=== PATIENT | male | born 1990 | race Caucasian/White ===

== ENCOUNTER 2022-09-02 11:16 | Emergency (ER) | payer MEDICAID, SELFPAY ==
[2022-09-02 11:18] VITALS: BP 134/93; PULSE 91; RESP 16; TEMP 36.3; O2SAT 100; BMI 32.6
--- NOTE | 2022-09-02 11:21 | ED.RN ---
PER PT OKAY TO GIVE INFORMATION TO MOTHER SAROJ BORRERO [phone]
--- NOTE | 2022-09-02 11:27 | EKG12_ITS ---
Test Reason : Blood Pressure : / mmHG Vent. Rate : 090 BPM Atrial Rate : 090 BPM P-R Int : 140 ms QRS Dur : 096 ms QT Int : 344 ms P-R-T Axes : 021 006 046 degrees QTc Int : 420 ms Normal sinus rhythm with sinus arrhythmia Normal ECG Confirmed by FRIDA CAT, BRITTNEY ([id number]), supervising film or videotape editor JUN SINGLETARY ([id number]) on 09/06/2022 10:12:30 AM Referred By: Confirmed By:BRITTNEY GALICIA MD
--- NOTE | 2022-09-02 11:32 | EDS_ITS ---
HPI HPI - Psych History of Present Illness Chief Complaint: Suicidal Narrative Narrative: 32-year-old male presents with lifelong depression. He states that its been getting worse over the last week. He does not currently take medication for it except for uaro-dxi-ensckso antihistamines, and is not currently being seen by psychiatry. He states that yesterday he asked his mother for help, and they brought him to the emergency department today for psychiatric evaluation. While he denies suicidal ideation today, he states last week he reportedly tried to asphyxiate himself. It is not over anything in particular, no recent trigger. He denies homicidal ideation or hallucinations. He does not recall being admitted for psychiatric reasons, but states that he was treated with counseling when he was younger, then into his 20s. He endorses mild insomnia and mildly decreased appetite. [facility] Medical History (Updated 09/02/22 @ 17:19 by Kristopher Jcakson MD) Depression Allergy/AdvReac Type Severity Reaction Status Date / Time cefaclor [From Ceclor] Allergy Hives Verified 09/02/22 11:21 strawberry [strawberries] Allergy Hives Verified 09/02/22 11:21 Social History Smoking Status: Current every day smoker tobacco type: cigarettes ROS ROS ED ROS Narrative Constitutional: No fever, no chills. HEENT: No sore throat. No neck pain. No loss of vision. No rhinorrhea. Cardiovascular: No chest pain. No palpitations. No pedal edema. Respiratory: No cough, no shortness of breath. Abdominal: No abdominal pain. No nausea. No vomiting. Genitourinary: No dysuria. No hematuria. Musculoskeletal: No myalgias. No arthralgias. Neurologic: No headaches. No dizziness. No lightheadedness. Skin: No rash. No change in color. Psychiatric: Positive depression. No anxiety. Suicidal thoughts in the past, reportedly tried to asphyxiate self last week. EXAM Physical Exam Narrative Exam Narrative: Afebrile. Vital signs noted. HEENT: Normocephalic. Atraumatic. PERRL, EOMI. Neck soft and supple. No point tenderness or step off. Cardiovascular: Regular rate and rhythm. No murmurs, rubs, or gallops appreciated. Respiratory: No tachypnea. Lungs clear to auscultation bilaterally. Gastrointestinal: Abdomen soft, nontender, with normoactive bowel sounds. No rebound or guarding. Neurological: Awake. Alert. Nonfocal, nonlateralizing. Skin: No rash. Normal color. No pallor. Musculoskeletal: No pedal edema. Full range of motion extremities. Psychiatric: Cooperative. Mildly flat affect. Positive depression. Currently denies suicidal ideation or plan. Const Vital Signs: 09/02/22 11:18 09/02/22 15:57 Temperature 97.4 F L Temperature Source Temporal Pulse Rate 91 Respiratory Rate 16 16 Blood Pressure 134/93 H Blood Pressure Mean 106 Pulse Ox 100 Oxygen Delivery Method Room Air MDM MDM MDM Narrative Medical decision making narrative: As the patient has not had any recent counseling and is not on medication, I do feel medical screening labs need to be obtained. Additionally, he will have evaluation by case aide. Reviewed his laboratory work. EKG was obtained, and interpreted by myself, which demonstrates normal sinus rhythm with sinus arrhythmia at 90 bpm without other ectopy or acute ST changes, no STEMI. It was interpreted by myself. I reviewed his laboratory work and he has a normal white count of 7.5, hemoglobin slightly hemoconcentrated at 17.1, normal hematocrit of 49.9, normal platelet count of 426. CMP was reviewed and he has slightly elevated total bilirubin of 2.2 which I think is nonspecific, electrolytes are grossly unremarkable with a sodium of 136 and a potassium of 3.5. BUN is normal at 9 with creatinine 0.86. Urine for drugs of abuse is negative. Ethyl alcohol also negative. At this point in time, I feel he is medically cleared for evaluation by case management. In discussion with social insurance specialist/case management, given that the patient is not currently on medications or under the care of a psychiatrist, and he has had other attempts in the last week or strong thoughts of suicide, it was felt that he did require placement in a psychiatric facility. He is currently pending final disposition. He is in stable condition. I discussed the patient with case management and he has been accepted at [facility]. Disposition is transferred in stable condition. History & Record Review Additional record(s) reviewed:: No prior records Lab Data Attestation: I reviewed the patient's lab results. Labs: Laboratory Results - last 24 hr 09/02/22 09/02/2223 12:15 12:15 12:15 WBC 7.5 RBC 6.01 Hgb 17.1 H Hct 49.9 MCV 83.0 MCH 28.5 MCHC 34.3 RDW Std Deviation 36.1 RDW Coeff of Sudheer 11.9 Plt Count 426 MPV 8.7 Immature Gran % (Auto) 0.100 Neut % (Auto) 57.3 Lymph % (Auto) 32.7 [place] % (Auto) 7.1 Eos % (Auto) 2.0 Baso % (Auto) 0.8 Absolute Neuts (auto) 4.3 Absolute Lymphs (auto) 2.45 Nucleated RBC % 0 Sodium 136 Potassium 3.5 Chloride 102 Carbon Dioxide 24.0 Anion Gap 10 BUN 9 Creatinine 0.86 Estim Creat Clear Calc 118.20 Est GFR (MDRD) Af Amer 133 Est GFR (MDRD) Non-Af 110 BUN/Creatinine Ratio 10.5 Glucose 100 Calcium 9.8 Total Bilirubin 2.20 H AST 27 ALT 41 Alkaline Phosphatase 76 Total Protein 8.7 H Albumin 4.5 Globulin 4.2 Albumin/Globulin Ratio 1.1 Urine Opiates Screen Urine Methadone Screen Ur Barbiturates Screen Ur Phencyclidine Scrn Ur Amphetamines Screen MDMA (Ecstasy) Screen U Benzodiazepines Scrn Urine Cocaine Screen U Cannabinoids Screen Ur Drug Screen Comment Ethyl Alcohol 7.0 09/02/22 13:30 WBC RBC Hgb Hct MCV MCH MCHC RDW Std Deviation RDW Coeff of Sudheer Plt Count MPV Immature Gran % (Auto) Neut % (Auto) Lymph % (Auto) [place] % (Auto) Eos % (Auto) Baso % (Auto) Absolute Neuts (auto) Absolute Lymphs (auto) Nucleated RBC % Sodium Potassium Chloride Carbon Dioxide Anion Gap BUN Creatinine Estim Creat Clear Calc Est GFR (MDRD) Af Amer Est GFR (MDRD) Non-Af BUN/Creatinine Ratio Glucose Calcium Total Bilirubin AST ALT Alkaline Phosphatase Total Protein Albumin Globulin Albumin/Globulin Ratio Urine Opiates Screen NEGATIVE Urine Methadone Screen NEGATIVE Ur Barbiturates Screen NEGATIVE Ur Phencyclidine Scrn NEGATIVE Ur Amphetamines Screen NEGATIVE MDMA (Ecstasy) Screen NEGATIVE U Benzodiazepines Scrn NEGATIVE Urine Cocaine Screen NEGATIVE U Cannabinoids Screen NEGATIVE Ur Drug Screen Comment Ethyl Alcohol Management Discussion w/another healthcare provider: meat counter worker/Case management Discharge Plan Triage Chief Complaint: Suicidal ED Provider: Kristopher Jackson Dx/Rx/DC Orders Clinical Impression: Depression, Suicidal ideations, Suicide gesture Primary Care Provider: Care Physician,No Primary Referrals: Care Physician,No Primary [Primary Care Provider] - Disposition Disposition: Psychiatric Hospital or Unit Discharge Location: [facility]
[2022-09-02 12:32] LABS: Absolute Lymphocyte Count 2.45 X10^3/uL (0.83-4.51); Absolute Neutrophil Count 4.3 X10^3/uL (2.0-7.7); Basophil# 0.06 X10^3/uL; Basophil% 0.8 % (0-1); Eosinophil# 0.15 X10^3/uL; Hematocrit 49.9 % (40-54); Hemoglobin 17.1 g/dL (13.0-16.5); Lymphocyte # 2.45 X10^3/ul (0.83-4.51); Lymphocyte % 32.7 % (19-41); Mean Corp Hgb Conc 34.3 g/dL (32-36); Mean Corpuscular Hgb 28.5 pg (27.0-32.0); Mean Platelet Vol. 8.7 fl (6.2-12.0); Monocyte# 0.53 X10^3/uL; Monocyte% 7.1 % (0-10); NRBC Flagged by Analyzer 0 % (0-5); Neutrophil % 57.3 % (47-70); Platelet Count 426 K/mm3 (150-450); RBC Distribution Width CV 11.9 % (11.6-14.6); RBC Distribution Width SD 36.1 fl (35.1-43.9); Red Blood Count 6.01 M/mm3 (4.6-6.2); White Blood Count 7.5 K/mm3 (4.4-11.0)
[2022-09-02 12:45] LABS: ALB/GLOB Ratio 1.1 RATIO (0.9-2.4); AST(SGOT) 27 U/L (15-37); Alanine Aminotransfer ALT/SGPT 41 U/L (16-61); Albumin, Serum 4.5 g/dL (3.2-5.0); Alkaline Phosphatase 76 U/L (45-117); Anion Gap 10 (5-15); BUN 9 mg/dL (7-18); BUN/Creat Ratio 10.5 RATIO (10-20); Calcium,Total 9.8 mg/dL (8.5-10.1); Chloride 102 mmol/L (98-107); Creatinine, Serum 0.86 mg/dL (0.70-1.30); EST Glomerular Filtration Rate 110 mL/min (>60); Est Glom Filt Rate - Afr Amer 133 mL/min (>60); Globulin 4.2 g/dL (2.2-4.2); Glucose 100 mg/dL (74-106); Potassium 3.5 mmol/L (3.5-5.1); Protein, Total 8.7 g/dL (6.4-8.2); Sodium Level 136 mmol/L (136-145)
[2022-09-02 14:02] LABS: Amphetamine Urine VISTA NEGATIVE (<1000 ng/mL); Barbiturate Urine VISTA NEGATIVE (< 200 ng/mL); Benzodiazepine Urine VISTA NEGATIVE (< 200 ng/mL); Cocaine Urine VISTA NEGATIVE (< 300 ng/mL); Ecstacy Urine VISTA NEGATIVE (< 500 ng/mL); Methadone Urine VISTA NEGATIVE (< 300 ng/mL); PCP Urine VISTA NEGATIVE (< 25 ng/mL); THC Urine VISTA NEGATIVE (< 50 ng/mL); Vista UDS pH Range 5
--- NOTE | 2022-09-02 14:20 | CM.ED ---
Social Work Psychiatric Assessment Reason for Consult: Suicidal Informants: Patient, Bernard ? Patient?s mother secondary to assessment with patient Chief Complaint: Patient reports ?I have been struggling with severe depression so I can?t my Mom for help and she brought me here?. Demographics: Patient is a 32-year-old who identifies as heterosexual male. Patient is single and lives in a home his mother owns. Patient completed first year of college and denies learning disabilities. Patient reports he was last employed in 2020. Mental Health Treatment/ History: Patient reports being engaged in counseling services most of her teen years but stopped in his early 20s. Patient unable to recall agency he worked with but was prescribed Prozac during that time. Patient reports known diagnosis of depression and no previous psychiatric hospitalization. ?? Supports/ Resources: Patient identified his mother as his only support. ? Triggers/ stressors: Patient explained nothing recent besides his stove breaking. Patient reports decrease in appetite and has lost 25 pounds since winter. Patient also reports struggle with sleeping too much or being unable to fall asleep. Legal Issues: None reported Coping Skills: Patient reports he rosio by reading or watching tv, however, patient explained he has been struggling to focus on those tasks when he tries. Abuse History: ? Patient denies experiencing abuse but explained he was a ?bully to other kids?. 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 Patient reports decrease in use over the past year. ?? Risk to Self/Others: ? Suicidal: SW assisted patient in completing the [place] Suicide Screening, patient is high risk for suicide. Patient reports he has gone to bed and wished he wouldn?t wake up, has had thoughts to end his life, has been thinking of plans and reports intent. Patient reports previous attempts dating back to 1995 with an interrupted or aborted attempt to jump off a building. Patient reports struggling with suicidal thoughts all day for the past week and explained he has attempted multiple times over the past week. Patient recalls trying to use a knife but explained he couldn?t break skin, patient also tried to asphyxiate himself with a plastic bag and most recently planned to mix bleach and ammonia and then hang himself. Patient reports he was looking for ammonia when he called his mother for help. ? Homicidal: Patient reports ?not since my teens?. ? Violence: Patient reports poking at his left arm when he is experiencing stress but hasn?t engaged since his early 20s. ?? Mental Status Exam: ? Orientation x4 ? Memory: good ? Appearance:? appropriate ? Mood/ affect: depressed mood, flat affect ? Communication Pattern: Patient responds to questions, frequently stating ?thanks? throughout assessment. ? Thought Process: Patient reports struggling with doubting reality. Patient explained ?I am 80% sure you are here talking to me but 20% of me doubts you are here?. Patient further explained ?If I was going to walk by traffic, I wouldn?t know if there was traffic or if I was imagining cars?. SW inquired if patient has ever attempted suicide by walking into traffic, patient reports ?not that I can recall?. ? General Intellectual Functioning: Patient?s mother reports patient has been told by professionals he is ?neurodivergent? but never diagnosed. Patient?s mother explained he was an honor student until college when patient?s depression ?took over?. Judgement: impaired Insight: impaired? Assessment: JANA met with patient and introduced herself and role as [facility] Devulcanizer Tender. Patient was agreeable to speak to social work. JANA then utilized open and close ended questions to gather information for patient?s assessment. Patient was receptive and cooperative. Patient reports attempting suicide multiple times over the past week including asphyxiation by plastic bag, using a knife and planning to mix bleach and ammonia and then hang himself. SW assisted patient in completing the [place] Suicide Screening, patient is high risk for suicide. Patient reports he has gone to bed and wished he wouldn?t wake up, has had thoughts to end his life, has been thinking of plans and reports intent. Patient reports limited supports and stopped engaging in mental health treatment since his early 20s. Patient provided permission for SW to contact patient?s mother. JANA consulted with MD Jackson and reviewed concerns, SW and MD in agreement for psychiatric hospitalization. JANA contacted patient?s mother and introduced herself and role as [facility] SW. Patient?s mother in agreement to talk with SW and reports being extremely concerned due to chronic untreated depression. Patient?s mother explained the patient stopped engaging in mental health treatment in his early 20s and struggled more with depression during covid pandemic. Patient?s mother reports known diagnosis of depression, sleep apnea, hypotonia and patient has been told he is ?neurodivergent? but not diagnosed. Patient?s mother explained patient was an honor student in High School but struggled with college due to his depression. JANA reviewed recommendation for inpatient psychiatric hospitalization, patient?s mother tearful but reports understanding. SW provided emotional support. ? SW met with patient and reviewed recommendation for inpatient psychiatric hospitalization for crisis stabilization and medication management, patient in agreement. SW updated care team regarding goal for psych placement. Plan: inpatient psychiatric hospitalization [facility] BURCIAGA, MUNIRA
[2022-09-02 15:57] VITALS: RESP 16
--- NOTE | 2022-09-02 17:15 | CM.ED ---
Social Work JANA contacted [facility] to inquire about bed availability, beds available. JANA faxed referral. Patient accepted to [facility] under MD De Dios, unit [address] [id number]. JANA updated care team. escrow secretary to arrange transportation. SW updated patient of acceptance to [facility]. Patient voiced understanding and inquired about clothes. SW explained he will be transported in hospital gown and his belongings with go with him. JANA inquired if patient wants SW to update patient's mother. Patient agreeable but states he will further update once he gets to the facility. SW updated patient's mother of accepting and provided facility contact information. SW informed patient's mother the patient will call her when he is able, patient's mother voiced understanding. Plan: [facility] [place] BURCIAGA, MUNIRA
[2022-09-02 17:26] VITALS: BP 165/100; PULSE 97; RESP 16; O2SAT 96
== END 2022-09-02 17:50 ==
PROVIDERS: Emergency Provider Emergency Medicine; Visit Provider Emergency Medicine
DX: F32.A Depression, unspecified (principal); R45.851 Suicidal ideations; F17.210 Nicotine dependence, cigarettes, uncomplicated
CPT/HCPCS: 80053; 80307; 82077; 85025; 87811; 93005; 99284; J7030; A4216

== ENCOUNTER 2024-11-21 13:10 | Emergency (ER) | payer MEDICAID, SELFPAY ==
[2024-11-21 13:11] VITALS: BP 127/92; PULSE 104; RESP 15; TEMP 35.9; O2SAT 96; BMI 32.6
--- NOTE | 2024-11-21 13:57 | ED.RN ---
PT WAS EVALUATED AT [facility]. THE COUNSELOR THERE SENT THE PT HERE TO BE SEEN.
[2024-11-21 14:03] LABS: Hematocrit 44.7 % (40-54); Hemoglobin 15.3 g/dL (13.0-16.5); Immature Granulocytes Count 0.030 X10^3/uL (0.0-0.0); Mean Corp Hgb Conc 34.2 g/dL (32-36); Mean Corpuscular Volume 84.2 fL (80-94); Mean Platelet Vol. 8.5 fl (6.2-12.0); NRBC Flagged by Analyzer 0 % (0-5); Platelet Count 407 K/mm3 (150-450); RBC Distribution Width CV 12.1 % (11.6-14.6); RBC Distribution Width SD 36.7 fl (35.1-43.9); Red Blood Count 5.31 M/mm3 (4.6-6.2); White Blood Count 9.7 K/mm3 (4.4-11.0)
[2024-11-21 15:01] LABS: Alcohol, Blood (Medical)-Serum < 10.1 mg/dL (<=10.0); Anion Gap 15 (5-15); BUN 8 mg/dL (4-19); BUN/Creat Ratio 10.4 RATIO (10-20); Calcium,Total 10.3 mg/dL (7.6-11.0); Carbon Dioxide 19.0 mmol/L (21.0-32.0); Chloride 103 mmol/L (98-108); Estimated Creatinine Clearance 157.75 ml/min (50-250); Glucose 132 mg/dL (70-99); Potassium 3.8 mmol/L (3.3-5.1)
--- NOTE | 2024-11-21 15:10 | EX.ED.VIS.PS ---
HPI HPI - Psych History of Present Illness Chief Complaint: Suicidal Narrative Narrative: Patient is a 34-year-old male presenting to the emergency department for suicidal ideation. Patient has a past medical history of depression, anxiety, autism spectrum, possible thyroid cancer? being worked up. Patient states that he has been dealing with suicidal ideation for years but it has worsened over the past 3 days. He states that he has a generalized plan if he were to commit suicide by slitting his wrist. States he is attempted this before. He is also attempted overdose with trazodone before. Denies ingestion of anything prior to evaluation here. He was at his therapist visit today and he endorsed these feelings to her and she sent him here for evaluation. Denies HI or plan. Denies hallucinations, paranoia or delusions. [facility] Medical History Depression Home Medications ?Medication ?Instructions ?Recorded ?Last Taken ?Type atorvastatin 20 mg tablet 20 mg PO DAILY 11/21/24 11/20/24 History azelastine 137 mcg (0.1 %) nasal 2 spray intranasal .QD 11/21/24 11/21/24 History spray benztropine 1 mg tablet 1 mg PO DAILY 11/21/24 11/20/24 History famotidine 40 mg tablet 40 mg PO PRN 11/21/24 Unknown History fluticasone propionate 50 2 spray intranasal DAILY 11/21/24 11/21/24 History mcg/actuation nasal spray,suspension ipratropium bromide 42 mcg (0.06 2 spray intranasal DAILY 11/21/24 11/21/24 History %) nasal spray lisinopril 10 mg tablet 10 mg PO DAILY 11/21/24 11/20/24 History loratadine 10 mg tablet 10 mg PO DAILY 11/21/24 11/20/24 History lurasidone 80 mg tablet 80 mg PO QPM 11/21/24 11/20/24 History polyethylene glycol 3350 17 17 PO DAILY 11/21/24 11/21/24 History gram/dose oral powder sertraline 50 mg tablet 50 mg PO DAILY 11/21/24 11/20/24 History Allergy/AdvReac Type Severity Reaction Status Date / Time cefaclor (From [facility]) Allergy Hives Verified 11/21/24 13:14 strawberry (strawberries) Allergy Hives Verified 11/21/24 13:14 Social History Smoking Status: Current every day smoker tobacco type: cigarettes ROS ROS ED ROS Narrative see HPI EXAM Physical Exam Narrative Exam Narrative: Vital signs: Reviewed General: Alert and oriented. No acute distress HEENT: Head is normocephalic and atraumatic, sinuses nontender, pupils equal round and reactive. Nares are patent. Oropharynx and throat exams normal. Neck: Supple without lymphadenopathy nontender Cardiovascular: Regular rate and rhythm, no murmurs. No rubs or gallops. Normal S1 and S2 Respiratory: Clear to auscultation bilaterally. No wheezes, rales, rhonchi Abdominal: Soft and nontender. Normal bowel sounds. No guarding or rebound. Nonsurgical abdomen Extremities: No tenderness. No bruising. Normal range of motion. Normal sensation. Skin: No rash or redness. Neurological: Cranial nerves II through XII are grossly intact. Normal strength and sensation. Normal cerebellar function The rest of the physical exam is unremarkable Const Vital Signs: 11/21/24 13:11 Temperature 96.6 F L Temperature Source Temporal Pulse Rate 104 H Respiratory Rate 15 Blood Pressure 127/92 H Blood Pressure Mean 103 Pulse Ox 96 Oxygen Delivery Method Room Air MDM MDM MDM Narrative Medical decision making narrative: Patient is a 34 old male presenting to the emergency department for suicidal ideation and worsening depression. Patient was seen and examined. Vitals are stable. Patient resting bed comfortably no acute distress. Given the patient's suicidal ideation with past attempts I do have significant concern and would recommend that he be admitted to an inpatient psychiatric facility. Medical clearance labs ordered. Patient evaluated by crisis. They recommended admission as well. Patient was pink slipped. Accepted at [facility] by Dr. Jennings. Will await transport. Clinical impression: Suicidal ideation Depression History & Record Review Discussion w/independent historian: Patient and Family Lab Data Attestation: I reviewed the patient's lab results. Labs: Laboratory Results - last 24 hr 11/21/24 11/21/24 13:45 15:57 WBC 9.7 RBC 5.31 Hgb 15.3 Hct 44.7 MCV 84.2 MCH 28.8 MCHC 34.2 RDW Std Deviation 36.7 RDW Coeff of Sudheer 12.1 Plt Count 407 MPV 8.5 Immature Gran % (Auto) 0.300 Neut % (Auto) 62.9 Lymph % (Auto) 25.3 [place] % (Auto) 7.5 Eos % (Auto) 3.3 Baso % (Auto) 0.7 Absolute Neuts (auto) 6.1 Absolute Lymphs (auto) 2.44 Nucleated RBC % 0 Sodium 138 Potassium 3.8 Chloride 103 Carbon Dioxide 19.0 L Anion Gap 15 BUN 8 Creatinine 0.74 Estim Creat Clear Calc 157.75 Est GFR (MDRD) Non-Af 121 BUN/Creatinine Ratio 10.4 Glucose 132 H Calcium 10.3 Urine Opiates Screen NEGATIVE U Buprenorphine Qual NEGATIVE Ur Oxycodone Screen NEGATIVE Urine Methadone Screen NEGATIVE Urine Fentanyl Screen NEGATIVE Ur Barbiturates Screen NEGATIVE Ur Phencyclidine Scrn NEGATIVE Ur Amphetamines Screen NEGATIVE U Benzodiazepines Scrn NEGATIVE Urine Cocaine Screen NEGATIVE U Cannabinoids Screen NEGATIVE Ethyl Alcohol < 10.1 Discharge Plan Triage Chief Complaint: Suicidal ED Provider: Ramya Maldonado Dx/Rx/DC Orders Prescriptions: No Action atorvastatin 20 mg tablet 20 mg PO DAILY azelastine 137 mcg (0.1 %) spray,non-aerosol 2 spray INTRANASAL .QD famotidine 40 mg tablet 40 mg PO PRN benztropine 1 mg tablet 1 mg PO DAILY fluticasone propionate 50 mcg/actuation spray,suspension 2 spray INTRANASAL DAILY ipratropium bromide 42 mcg (0.06 %) spray,non-aerosol 2 spray INTRANASAL DAILY lisinopril 10 mg tablet 10 mg PO DAILY polyethylene glycol 3350 17 gram/dose powder 17 PO DAILY sertraline 50 mg tablet 50 mg PO DAILY loratadine 10 mg tablet 10 mg PO DAILY lurasidone 80 mg tablet 80 mg PO QPM Primary Care Provider: Care Physician,No Primary Referrals: Care Physician,No Primary [Primary Care Provider] - Print Language: Macanese
[2024-11-21 17:25] LABS: Barbiturate Urine NEGATIVE (< 200 ng/mL); Benzodiazepine Urine NEGATIVE (< 200 ng/mL); PCP Urine NEGATIVE (< 25 ng/mL); THC Urine NEGATIVE (< 50 ng/mL)
--- NOTE | 2024-11-21 17:26 | CM.ED ---
Social Work Psychiatric Assessment Reason for consult: suicidal Informant(s): patient, medical records, patient's mother (Zeynep), patient's stepfather (Dann) Chief Complaint: Patient presented to [facility] ED today after disclosing suicidal thoughts and means to patient's counselor. Patient stated having to move back in with parents as a stressor due to it making patient feel as if patient is a failure. Patient stated feeling isolated and unsupported as stressors, as well as the stress of feeling like a burden to others. Patient endorsed sleeping too much, laying in bed all day, and experiencing an increase in depression. Patient endorses decreasing appetite lately (in a private conversation, patient's mother stated patient has lost 40 pounds over the last 2 months). Patient stated feelings of hopelessness, helplessness, and feeling as if patient is a disappointment to patient's mother. Patient denied family history of suicide, but endorsed family history of depression. Patient denied hallucinations or delusions. Patient reported having a suicide attempt in August 2024 where patient attempted to overdose on Trazodone and slit patient's wrists. Patient stated having a self-interrupted attempt this morning that involved cutting patient's wrists in patient's bedroom. Patient reports an upcoming appointment to discuss a future thyroid surgery for possible thyroid cancer to be a stressor. Of note, patient's last suicide attempt was also due to patient's stress regarding patient's medical concerns. Per separate conversation with patient's mother and stepfather, patient is on the spectrum and has reportedly lost 40 pounds over the last 2 months. Patient's mother stated belief that patient had been doing better overall, though patient's mother did state that patient does nothing during the day. Marital/Social History/Sexual Orientation/Gender Identity: patient is a 34 year old, single male. Living Situation: patient lives with patient's mother and stepfather. Patient moved back in with parents 3 months ago; prior to this, patient reportedly lived in [place]. Support/Resources: patient reports belief that patient's mother is a support, as well as two friends that live in [place]. History: none Education and Employment History: patient completed high school and attempted two years of college before flunking out. Patient is currently unemployed. Mental Health Treatment/History: patient reports taking Lurasidone and Sertraline; patient reports these are prescribed by a psychiatric provider in [place]. Patient was seeing a counselor in [place] once per month, but patient has switched to a counselor in [place] ([employer]) once per week. Patient states having lifelong depression with increasing depression lately. Patient states having anxiety, depression, and autism spectrum disorder. Patient has received inpatient hospitalizations at [facility] 2022, [facility] 2023, and [facility] in August 2024. Triggers/Stressors to mental health: patient states having to move back in with parents as a stressor due to it making patient feel as if patient is a failure. Patient states feeling isolated and unsupported as stressors, as well as the stress of feeling like a burden to others. Patient reports an upcoming appointment to discuss a future thyroid surgery for possible thyroid cancer to be a stressor. Of note, patient's last suicide attempt was also due to patient's stress regarding patient's medical concerns. Coping Skills: patient states reading comics and playing Solitaire on patient's phone are patient's only two coping skills. History of Abuse (physical/sexual/verbal/emotional): patient denies. Substance Abuse Current/Historical: patient states drinking alcohol from [id number], but consuming no alcohol since. Patient denies other substance use. Risk to Self/Others: ? Suicidal (thought/plan/intent/attempt): see C-SSRS for details. ? Access to Lethal Means: patient states having a multi-tool and a bottle silk opener, both with sharp ends, in patient's bedroom. Patient states having a kitchen set of knives in patient's home. Patient denies access to firearms or lethal amounts of medication. ? Homicidal (thought/plan/intent/attempt): patient denies. ? History of Violence (self/others/objects): patient states violence toward self via cutting. Patient states pushing patient's mother once as well as yelling often at people in high school. 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 Mental Status Exam: ??? Orientation: patient oriented to time, place, and person. ??? Memory: fair (patient is reportedly on the autism spectrum) Appearance/General Behavior: unclean, directable Mood/Affect: depressed, flat Communication Pattern: responds to questions, tangential at times. Thought Process: appropriate, fragmented at times. General Intellectual Functioning: below average (autism spectrum disorder) Judgment: poor Insight: fair [place] SS[place] SUICIDAL IDEATION Ask questions 1 and 2. If both are negative, proceed to ?Suicidal Behavior? section. If the answer question 2 is yes, ask questions 3, 4, 5.? If the answer to question 1 and/or 2 is ?yes?, complete ?Intensity of Ideation? section below. 1. Wish to be ? Subject endorses thoughts about a wish to be or not alive anymore or wish to fall asleep and not wake up. Have you wished you were or wished you could go to sleep and not wake up? Lifetime: Time He/She Bond Most Suicidal: ?yes Past 1 month: yes Please Describe if yes: ?patient reports having general thoughts of wishing patient were . 2. Non-Specific Active Suicidal Thoughts General, non-specific thoughts of wanting to end one?s life/commit suicide (e.g., ?I?ve thought about killing myself?) without thoughts of ways to kills oneself/associated methods, intent, or plan during the assessment period.? Have you actually had any thoughts of killing yourself? Lifetime: Time He/She Bond Most Suicidal: ?yes Past 1 month: yes Please Describe if yes: patient reports having general thoughts of killing self. 3. Active Suicidal Ideation with Any Methods (Not Plan) without Intent to Act Subject endorses thoughts of suicide and has thought of at least one method during the assessment period.? This is different than a specific plan with time, place, or method details worked out (e.g., thought of method to kills self but not a specific plan).? Includes person who would say ?I thought about thanking an overdose, but I never made a specific plan as to when, where or how. I would actually do it, and I would never go through with it.? Have you been thinking about how you might do this? Lifetime: Time He/She Bond Most Suicidal: ?yes Past 1 month:? yes Please Describe if yes: patient reports having recent thoughts of wanting to slit wrists or jump into moving traffic. Patient reports previous thoughts of overdosing, shooting self, or drowning. 4. Active Suicidal Ideation with Some Intent to Act, without Specific Plan Active suicidal thoughts of kills oneself fand subject reports having some intent to act on such thoughts, as opposed to ?I have the thoughts but I definitely will not do anything about them.? Have you had these thoughts and had some intention of acting on them? Lifetime: Time He/She Bond Most Suicidal: yes Past 1 month: no Please Describe if yes: patient reports previous intent to overdose, shoot self, or drown self. 5. Active Suicidal Ideation with Specific Plan and Intent Thoughts of kills oneself with details of plan fully or partially worked out and subject has some intent to care it out. Have you started to work out or worked out the details of how to kill yourself? Do you intend to carry out this plan? Lifetime: Time He/She Bond Most Suicidal: yes Past 1 month: ?no Please Describe if yes: patient reports previous plans of overdosing, shoot self, slitting wrists, and drowning. INTENSITY OF IDEATION The following feature should be rated with respect to the most sever type of ideation (i.e., 1-5 from above, with 1 being the least severe and 5 being the most severe). Ask about time he/she/they were feeling the most suicidal.? Lifetime - Most Severe Ideation: Type # (1-5): 5 Description: overdose, shooting self Recent - Most Severe Ideation: Type # (1-5): 3 Description: slitting wrists, jumping into moving traffic Frequency How many times have you had these thoughts? Lifetime: (1) Less than once a week??? (2) Once a week?? (3)? 2-5 times in week??? (4) Daily or almost daily??? (5) Many times each day Recent, Past 1 month:? (1) Less than once a week??? (2) Once a week?? (3)? 2-5 times in week??? (4) Daily or almost daily??? (5) Many times each day Duration When you have the thoughts, how long do they last? Lifetime: (1) Fleeting - few seconds or minutes? (2) Less than 1 hour/some of the time? (3) 1-4 hours/a lot of time? 4) 4-8 hours/most of day? (5) More than 8 hours/persistent or continuous Recent, Past 1 month:? (1) Fleeting - few seconds or minutes? (2) Less than 1 hour/some of the time? (3) 1-4 hours/a lot of time? 4) 4-8 hours/most of day? (5) More than 8 hours/persistent or continuous Controllability Could/can you stop thinking about killing yourself or wanting to if you want to? Lifetime:? (1) Easily able to control thoughts?? (2) Can control thoughts with little difficulty??? (3) Can control thoughts with some difficulty??? 4) Can control thoughts with a lot of difficulty? (5) Unable to control thoughts?? (0) Does not attempt to control thoughts Recent, Past 1 month: (1) Easily able to control thoughts?? (2) Can control thoughts with little difficulty??? (3) Can control thoughts with some difficulty??? 4) Can control thoughts with a lot of difficulty? (5) Unable to control thoughts?? (0) Does not attempt to control thoughts Deterrents Are there things - anyone or anything (e.g., family, scientologist, pain of ) - that stopped you from wanting to or acting on thoughts of committing suicide? Lifetime:? (1) Deterrents definitely stopped you from attempting suicide? (2) Deterrents probably stopped you?? (3) Uncertain that deterrents stopped you? (4) Deterrents most likely did not stop you? (5) Deterrents definitely did not stop you?? 0) Does not apply??? Recent:??? (1) Deterrents definitely stopped you from attempting suicide? (2) Deterrents probably stopped you?? (3) Uncertain that deterrents stopped you? (4) Deterrents most likely did not stop you? (5) Deterrents definitely did not stop you?? 0) Does not apply??? Reasons for Ideation What sort of reasons did you have for thinking about wanting to or killing yourself? Was it to end the pain or stop the way you were feeling (in other words you couldn?t go on living with this pain or how you were feeling) or was it to get attention, revenge or a reaction from others? Or both? Lifetime: (1) Completely to get attention, revenge or a reaction from?? (2) Mostly to get attention, revenge or a reaction from others? (3) Equally to get attention, revenge or a reaction from others? and to end/stop the pain?? ( 4) Mostly to end or stop the pain (you couldn?t go on living with the pain or how you were feeling)??? (5) Completely to end or stop the pain (you couldn?t go on living with the pain or? how you were feeling)??? (0)? Does not apply? Recent: (1) Completely to get attention, revenge or a reaction from?? (2) Mostly to get attention, revenge or a reaction from others? (3) Equally to get attention, revenge or a reaction from others? and to end/stop the pain??? (4) Mostly to end or stop the pain (you couldn?t go on living with the pain or how you were feeling)?? (5) Completely to end or stop the pain (you couldn?t go on living with the pain or? how you were feeling)?? (0)? Does not apply? SUICIDAL BEHAVIOR Actual Attempt: A potentially self-injurious act committed with at least some wish to , as a result of act.? Behavior was in part thought of as method to kill oneself.? Intent does not have to be 100%.? If there is any intent/desire to associated with the act, then it can be considered an actual suicide attempt.? There does not have to be any injury of harm, just the potential for injury or harm.? If person pulls trigger while gun is in mouth, but gun is broken so no injury results, this is considered an attempt.? Inferring intent:? Even if an individual denies intent/wish to , it may be inferred clinically from the behavior or circumstances.? For example, a highly lethal act that is clearly not an accident so no other intent but suicide can be inferred (e.g. gunshot to head, jumping from window of a high floor/story).? Also, if someone denies intent to , but they thought that what they did could be lethal, intent may be inferred.? Have you made a suicide attempt? Have you done anything to harm yourself? Have you done anything dangerous where you could have ? What did you do? Did you as a way to end your life? Did you want to (even a little) when you ? Were you trying to end your life when you ? Or did you think it was possible you could have from ? Or did you do it purely for other reasons/without ANY intention of killing yourself like to relieve stress, feel better, get sympathy, or get something else to happen)? (Self -Injurious Behavior without suicidal intent) Lifetime: yes Past 3 months: yes If yes, describe: patient states that over the lifetime, patient states attempting via jumping into a pool to drown and slitting wrists. Patient states the August 2024 attempt was via overdose and slitting wrists. Total # of Attempts in His/Her Lifetime: 2 Total # of attempts in Past 3 months: 1 Has person engaged in Non-Suicidal Self-Injurious Behavior? Lifetime: no Past 3 months: no Interrupted Attempt: When the person is interrupted (by an outside circumstance) from starting the potentially self-injurious act (if not for that, actual attempt would have occurred).? Overdose: Person has pills in hand but is stopped from ingesting. Once they ingest any pills, this becomes an attempt rather than an interrupted attempt. Shooting: Person has gun pointed toward self, gun is taken away by someone else, or is somehow prevented from pulling trigger. Once they pull the trigger, even if the gun fails to fire, it is an attempt. Jumping: Person is poised to jump, is grabbed and taken down from ledge.? Hanging: Person has noose around neck but has not yet started to hang self -is stopped from doing so.? Has there been a time when you started to do something to end your life but someone or something stopped you before you did anything? Lifetime: no Past 3 months: no If yes, describe: ?N/A Total # of interrupted attempts in His/Her Lifetime: N/A Total # of interrupted attempts in Past 3 months: N/A Aborted or Self-Interrupted Attempt:? When person begins to take steps toward making a suicide attempt, but stops themselves before they have actually engaged in any self-destructive behavior. Examples are like interrupted attempts, except that the individual stops him/herself, instead of being stopped by something else. Has there been a time when you started to do something to try to end your life, but you stopped yourself before you did anything? Lifetime: yes Past 3 months: yes If yes, describe: patient stated patient has often chickened out. When prompted for further information, patient stated intent to slit wrists this morning and then stopped self. Patient stated stopping self in the past when desiring to jump into traffic while waiting for the bus. Patient stated thinking about family and past failed attempts is often what stops patient. Total # of aborted or self-interrupted attempts in His/Her Lifetime: unable to assess Total # of aborted or self-interrupted attempts in Past 3 months: unable to assess Preparatory Acts or Behavior:? Acts or preparation towards imminently making a suicide attempt. This can include anything beyond a verbalization or thought, such as assembling a specific method (e.g., buying pills, purchasing a gun) or preparing for one?s by suicide (e.g., giving things away, writing a suicide note). Have you taken any steps towards making a suicide attempt or preparing to kill yourself (such as collecting pills, getting a gun, giving valuables away or writing a suicide note)? Lifetime: yes Past 3 months: yes If yes, describe: patient states in the past, patient has gathered medications and kept sharp objects around. Currently, patient reports preparing for suicide by not removing the sharp objects. Total # of preparatory acts in His/Her Lifetime: unable to assess Total # of preparatory acts in Past 3 months: unable to assess Lethality/Medical Damage:??? 0. No physical damage or very minor physical damage (e.g., surface scratches). 1. Minor physical damage (e.g., lethargic speech; first-degree jarrell; mild bleeding; sprains). 2. Moderate physical damage; medical attention needed (e.g., conscious but sleepy, somewhat responsive; second-degree jarrell; bleeding of major vessel). 3. Moderately severe physical damage; medical hospitalization and likely intensive care required (e.g., comatose with reflexes intact; third-degree jarrell less than 20% of body; extensive blood loss but can recover; major fractures). 4. Severe physical damage; medical hospitalization with intensive care required (e.g., comatose without reflexes; third-degree jarrell over 20% of body; extensive blood loss with unstable vital signs; major damage to a vital area). 5. Most Recent attempt Date: Code: Most Lethal Attempt Date: Code: Initial/First Attempt Date: Code: Potential Lethality: Only Answer if Actual Lethality=0 Likely lethality of actual attempt if no medical damage (the following examples, while having no actual medical damage, had potential for very serious lethality: put gun in mouth and pulled the trigger but gun fails to fire so no medical damage; laying on train tracks with oncoming train but pulled away before run over). 0 = Behavior not likely to result in injury 1 = Behavior likely to result in injury but not likely to cause 2 = Behavior likely to result in despite available medical care Most Recent Attempt Code: Most Lethal Attempt Code: Initial/First Attempt Code: Assessment Summary: due to patient's impulsivity, patient's counselor's concerns with patient's presentation, patient's increased feelings of hopelessness, helplessness, and being a burden, as well as patient's history of suicidality and inpatient stabilizations, patient would benefit from inpatient treatment for stabilization and medication management. Patient's concerns with health, lack of coping strategies, lack of support system, and isolation are also contributing factors to this decision. Spoke with doctor and SW vehicle maintenance supervisor who are in agreement. Plan: inpatient mental health treatment Colleen Vigil, ENERGY PROJECTS LEAD, HYBRID TESTER
--- NOTE | 2024-11-21 18:58 | CM.ED ---
Social work Due to complexities of patient's case and having a pre-op appointment tomorrow for upcoming thyroid surgery on 12/06/24, SW discussed this case with Voucher Clerk JESSICA Ayala. Ultimately, it was decided patient needed inpatient placement despite the upcoming appointment due to patient's impulsivity and other details (outlined in SW assessment). 1820: called [facility] (ph: ) and spoke with N[place]ka. Beds available, so referral packet faxed (f: ). Patient accepted shortly after referral packet faxed. [facility]. Dr. Jennings. [facility]. N2N: , option 6 Patient, doctor, and nursing updated. At patient's request, patient's mother, Zeynep, updated by JANA via phone call (ph: [phone]). Plan: [facility], pending transport. Colleen Vigil, IRRIGATION TEACHER, SKIP PIT WORKER
--- NOTE | 2024-11-21 19:33 | ED.RN ---
Report given to [place].
[2024-11-21 19:43] VITALS: BP 136/94; PULSE 95; RESP 17; TEMP 36.6; O2SAT 97
== END 2024-11-21 19:54 ==
LOC: ED 14:18
PROVIDERS: Emergency Provider Student in an Organized Health Care Education/Training Program; Referring Provider Student in an Organized Health Care Education/Training Program; Visit Provider Student in an Organized Health Care Education/Training Program
DX: R45.851 Suicidal ideations (principal); F32.A Depression, unspecified; F17.210 Nicotine dependence, cigarettes, uncomplicated; Z79.899 Other long term (current) drug therapy
CPT/HCPCS: 80048; 80307; 82077; 85025; 99285

== ENCOUNTER 2025-01-21 08:00 | Outpatient (RCR) | payer MEDICAID, SELFPAY ==
--- NOTE | 2025-01-21 10:10 | BH.SGPN.GN ---
Behaviors/Verbalizations/Mental Status: [] Pt alert and oriented, disheveled. Eye contact poor. Motor activity appropriate. Speech within normal limits. Affect abner, mood depressed. Thoughts linear, logical, no signs of hallucinations or delusions. Client Response/Progress/Benefit: [] Pt appeared attentive however did not participate in group discussion not did he appear to be taking notes. Attentive as group provided examples of types of support (professional, pets, hobbies, community, spouse, spirituality, co-workers, family, etc) as well as benefits of having social support, including: validation, get perspective, and accountability. Pt also was attentive during group discussions regarding the barriers to accessing support and pt?s barriers included; isolation, overconfidence, reliance on unhealthy coping, and self-sabotage. Pt participated in experiential activity illustrating the impact communication, boundaries, and patience play in creating healthy support systems. Pt appeared to benefit from increased knowledge of the benefits of social support and greater self-awareness. Pt to continue IOP to prevent decompensation/re-admission to psych unit, stabilize mood, and increase healthy coping. Narrative Note: []
--- NOTE | 2025-01-21 11:10 | BH.SGPN.GN ---
Behaviors/Verbalizations/Mental Status: []Client alert and oriented, casually dressed and groomed. Eye contact good. Motor activity appropriate. Speech within normal limits. Affect congruent, mood depressed. Thoughts linear, logical, no signs of hallucinations or delusions. Client Response/Progress/Benefit: [] Pt participated throughout AEB contributing to discussion, providing examples, and taking notes. Pt provided input during discussion on the types of support our supports can provide. Pt able to identify current support system and barriers that get in the way of using supports. Pt reported after identifying what type of supports pt receives, pt gained awareness that pt could benefit from more social and emotional support by continuing to attend IOP tx and discuss things with supports online. Pt seemed to benefit from identifying the type of support pt needs to work on improving. Pt recommended to continue IOP tx to promote increase positive self-talk, improve mood stability, and prevent decompensation. Narrative Note: []
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
--- NOTE | 2025-01-21 15:29 | BH.MTP ---
Master Treatment Plan Patient Information Program Physician:: Dr. Vldaimir Sterling Primary Therapist:: MUNIRA Choudhury Psychiatric Diagnoses Psychiatric Diagnoses:: Major Depressive Disorder, Autism Spectrum Disorder Diagnosis Code(s):: F33.2 Estimated LOS Estimated LOS (in weeks):: 8 Problem/Goal #1 Problem/Goal #1 Stated Goal:: Pt will decrease depressive symptoms, hopelessness, worthlessness, and negative self-talk. Description of Barriers: Pt reports limited social support and shares that he struggles with significant negative self-talk and low self-worth due to relying on his parents financially and for transportation. Functional Impact: Pt was referred to [facility] tx by outpatient therapist, Alis Judd at [facility], due to worsening sx of depression. Pt reports he has a long hx of depression but sx have been worsening since May when he was diagnosed with thyroid cancer. Tumor was removed but pt has continued struggling with daily functioning, feeling like a burden, and guilt for having his parents care for his medical needs. He was living independently in his mother's second home in [place], [place] until November when pt attempted to overdose. He was then hospitalized at [facility] and moved in with his mother and step-father in [place] following hospital d/c. Reports although he is no longer actively suicidal, he continues to struggle with passive thoughts, as well as daily depressive sx. Goal Relevant Strengths/Supports: Pt is connected with outpatient therapy at [facility] and pt has a team leader/research psychologist at [facility]. Objectives Objective #1: Stated Objective: Pt will learn and utilize 2-3 healthy coping strategies to better manage depressive symptoms as shown by a decrease of DMS-5 symptoms for depression and suicidal ideation. Interventions: Through group and individual sessions, therapist will help pt identify triggers and warning signs of depression and guilt including emotional, physical, and behavioral changes. Therapist will teach pt various coping skills to manage symptoms and give pt tangible resources to use to regulate emotions. Therapist will use cognitive restructuring techniques and help pt gain awareness of negative thoughts that reinforce guilt and depression. Therapist will provide psychoeducation on maintenance cycles and help pt learn ways to break unhealthy maintenance cycles. Therapist will help pt incorporate behavioral activation and assist pt in setting SMART goals. Discharge Criteria: Pt will have met this goal when can report learning and using at least 2 coping skills to manage depressive symptoms and reduce isolation. Additionally, pt will have met this goal when pt's DSM-5 scores for depression decrease. Target Date: 03/21/25 Review Date: 02/11/25 Objective #2: Stated Objective: Pt will identify at least 2-3 negative self-talk messages used to reinforce negative core beliefs, worthlessness, and isolation and replace thoughts with balanced, realistic messages. Interventions: Therapist will help pt identify distorted, negative beliefs about self and replace with more realistic, affirmative messages. Therapist will use CBT and DBT to help pt increase insight to the connection between thoughts, emotions, and behaviors. Therapist will encourage pt to practice thought challenging. Discharge Criteria: Pt will have achieved this goal when can verbalize at least 2 cognitive distortions and effectively replace those thoughts with affirmative messages. Target Date: 03/21/25 Review Date: 02/11/25
--- NOTE | 2025-01-21 15:29 | BH.MDN_ITS ---
Multi-Disciplinary Note Note 30-min Individual: Time Started:: 09:30 Date: 01/21/25 Purpose of session/treatment goals addressed:: To gather information on pt's current stressors, symptoms, triggers, history, and tx goals. Another goal was to build rapport and provide emotional support. Eye Contact:: Good Motor Activity:: Appropriate Appearance:: Disheveled (did appear to have body odor and reported struggling with showering) and Casual Speech:: Appropriate Mood:: Depressed Affect:: Congruent Thoughts:: Linear, Logical and No evidence of hallucinations/delusions noted Staff Interventions:: motivational interviewing, rapport building, strengths perspective and goal setting (created goals for daily habit tracker) Client Response:: Pt receptive of session, actively engaged throughout. Reports that he is hesitant to do the IOP program as he does not care much for groups and struggles with socializing; however, wants to see improvements in his mental health sx and feels outpatient counseling has not been effective enough. Pt reports that he has been working with Azul Judd at [facility] for the past 4-5 weeks now that he is living in [place]. Pt went on to explain that he had been living in [place], [place] where he is originally from, but following his suicide attempt on August 12 and hospitalization, pt moved in with his mother and stepfather. While in [place] pt had been living in his mother?s vacant condo. Shared that he attempted to overdose on trazodone following a community pot-luck dinner at the local community center and was found the next morning by a group of community members planning to play cards. He was then taken to the local Emergency Dept. and once medically cleared transferred to [facility] inpatient psych unit. Pt noted that at the time of his attempt he had been struggling with feelings of being a failure and burden as well as worsening depression since being diagnosed with thyroid cancer in May. Pt reports he is now in remission but feels his depression has not improved. Pt has a lifelong hx of depression and chronic suicidal ideation. He reports he has been hospitalized for mental health reasons multiple times in his life and has had several suicide attempts, although uncertain of the exact number. Pt reports he has attempted to slit his wrists and throat in the past and has had multiple self-aborted attempts of this nature due to fear of pain. Pt has seferino on various psychiatric medications as well with limited results. He reports he struggles most with feeling like a burden to his family and not being ?successful?. Shared that he feels he should have a job, a driving license, and his own home. Feels that depending on his parents for support makes him a failure and worthless. He would like to work on improving self-worth, reducing depression, and finding a sense of purpose. Risks/Concerns:: Pt denies active SI, plan, or intent as of this date. He does have chronic passive SI and an attempt in August 2024. Does have a safety plan and reports ability to maintain safety. See CSSR-S. Progress Toward Goals/Plan:: Pt's first day of IOP tx and pt reports he is feeling numb. Pt states he feels like he has failed his parents and himself for not being more independent and successful in his life. Reports that he would like to work on improving value of self and ability to be more independent. Pt is somewhat reluctant of the group setting but open to trying. Pt receptive to working on negative thinking patterns, isolation, anhedonia, and independence. Pt is working with an outpatient therapist. Pt's depression and anxiety have become so severe that pt is unable to function at home, work, and within his relationships like he wants to. Pt will continue IOP tx to prevent decompensation, improve daily functioning, and gain healthy coping skills. Time Stopped:: 09:32
--- NOTE | 2025-01-23 09:00 | BH.SGPN.GN ---
Behaviors/Verbalizations/Mental Status: [] Eye contact is poor. Motor activity is appropriate. Appearance is disheveled. Speech is Appropriate. Mood is depressed. Affect is flat. Thoughts are linear and logical. No evidence of psychosis. Client Response/Progress/Benefit: [] Pt participated only when prompted. Able to identify a mental health win which was completing laundry. He also reached out to his friends. Hoping to be more social and less isolative. Reports stressors as being reliant on his parents for food, intermediate, and ?everything?. Limited progress noted. Limited benefit aside from social interactions. Will continue in IOP to maintain safety, increase healthy coping, and improve functioning. Narrative Note: []
--- NOTE | 2025-01-23 10:10 | BH.SGPN.GN ---
Behaviors/Verbalizations/Mental Status: [] Eye contact is good. Motor activity is appropriate. Appearance is disheveled. Speech is Appropriate. Mood is depressed. Affect is constricted. Thoughts are linear and logical. No evidence of psychosis Client Response/Progress/Benefit: [] Pt receptive of session, actively engaged throughout AEB taking notes, providing input, and contributing in small group discussion. Appeared to connect with group topic of automatic thoughts and cognitive distortions, as well as the impact of thought patterns on mental health, coping behaviors, and relationships. This particular group is very heavy on psychoeducation and pt appeared to connect with distortions and how they can impact functioning. Client reported he could connect with several of the distortions.. Pt appeared to benefit from gaining insight on distorted thinking patterns and how this impacts overall mental health. Will continue IOP to increase healthy coping, challenge negative thoughts, and prevent decompensation.
--- NOTE | 2025-01-23 11:10 | BH.SGPN.GN ---
Behaviors/Verbalizations/Mental Status: [] Eye contact is good. Motor activity is appropriate. Appearance is disheveled. Speech is Appropriate. Mood is depressed. Affect is flat. Thoughts are linear and logical. No evidence of psychosis. Client Response/Progress/Benefit: [] Pt was an active participant and responded well to session AEB input and examples during group activity. Pt appeared to benefit from group feedback throughout session as pt struggled with combatting own thoughts. Group discussed and practiced methods of reframing cognitive distortions. Pt participated in identifying cognitive distortions when examples were provided. Pt discussed in group the different strategies to overcome the distortions. Pt identified cognitive distortion they used most often and made plan to identify and challenge thoughts that contribute to it as homework over the next couple of days. Pt did well in small group during experiential activity and helped group identify answers. Will continue tx to further prevent decompensation, improve daily functioning, and learn healthy coping skills. Narrative Note: []
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
--- NOTE | 2025-01-24 07:35 | BH.DR.ITP ---
Initial Treatment Plan Patient Information Visit Information: ADMISSION DATE: EXPECTED LOS: 4-6 weeks Diagnoses:: Major depressive disorder, recurrent, severe Problems/Symptoms Problem #1:: Depression Symptom:: Anhedonia, worthlessness, low mood, passive suicidality, poor appetite
--- NOTE | 2025-01-24 10:00 | BH.NA ---
Physical Data Vital Signs Pulse Rate: 84 Blood Pressure: 150/92 Height/Weight Height: 1.7 m Weight:: 97.522 kg Weight in Pounds: 215.0 lbs Current Medication Compliance Medication Compliance Do you take your medication as prescribed?: Yes Functional Assessment Sleep Pattern Describe any problems with sleeping: Client states he sleeps 9-10 hours per day. Sensory/Communication Assess Communication Problems Do you have difficulty understanding what people are saying?: No Medical Problems/History Cardiac Conditions Cardiovascular: Hypertension and Hyperlipidemia Gastrointestinal Conditions Gastrointestinal: Constipation and Other (See comments) (fatty liver) Cancer History Type of Cancer:: Thyroid (had partial thyroidectomy in November 2024) Surgical History Surgical History Have you had any surgeries? If so, list type and date:: Yes (thyroidectomy, ear tubes) Substance Abuse Substance Abuse Please describe substance abuse in the last 30 days:: Client states he used to drink alcohol from [id number], approximately 2 times per week. Client denies tobacco use. Client states he used Adderall recreationally 1 time in 2010 but denies any other substance use. Client states he has recently started drinking coffee again, 1 cup per day at most. Mental Status Summary Mental Status Significant Findings/Observations on Appearance and Mood:: Client is alert and oriented x 4. Client is casually groomed. Client is cooperative with assessment. Client makes fair eye contact. Client's voice has normal rate and volume. Client has a somewhat restricted affect. Client makes logical associations and has mostly normal processing. Client denies delusions/hallucinations. Client reports chronic passive SI, but denies intent/plan. Suicide Assessment Suicidal Ideation Are you currently or have you been suicidal in the past?: Yes Suicidal Intentional Rating Scale (SIRS): Current suicidal thoughts/No plan/Contracts for safety (passive daily SI, denies plan/intent) Physician Notification Past Psychiatric History MH Treatment Hx Past Psychiatric Medications:: Trazodone, Luvox, Prozac, Cymbalta, Risperdal Age of first mental health symptoms: Client states he was first on medication for mental health around age 7. Client states he was off medication for mental health from 1173-0451, but has been on medication since 2022 when he was hospitalized. Describe (age, circumstance, etc) any past hospitalizations: x2 in 2022 for SI, August 2024 at [facility] and November 2024 at [facility] for SI Current providers for mental health treatment (counselor, psychiatrist, cyanide case hardener, etc.): neuropsychology service director in [place] at [facility] for therapy Fall Risk Assessment Age Age: Less than 60 Mental Status Mental Status: Willing & able to ask for assistance when needed Physical Status Physical Status: No problems Impairments Impairments: None Elimination Elimination: Continent AND independent Gait or Balance Gait or Balance: Walks independently Medications/Substances Psychotropics:: Antidepressants and Antipsychotics Others:: Antihypertensives Medications/substances used within the past 24 hours or ordered to administer: 3 or more of the medications/substances listed above RN Summary of Impressions Impressions Recommendations Impressions: Psychiatric Issues: major depressive disorder Level of Care How do the client's current symptoms and functional deficits support need for this level of care?: Client was referred to IOP by his outpatient therapist after recent hospitalization in November 2024 due to SI. Client reports symptoms of depression worsened this year when he was diagnosed with thyroid cancer in May 2024. Client reports chronic passive SI, but denies plan/intent. Client states his biggest stressor is depending on his mom and stepdad and not being able to help them in anyway. Client reports feeling like a burden, isolating, and avoidance (states he does not really like being around people). IOP will promote gains and prevent further decompensation while providing social support and skills training. Nutritional Screen Height/Weight Height: 1.7 m Weight:: 97.522 kg Weight in Pounds: 215.0 lbs Nutrition Screening Normal Weight: 102.058 kg Normal/Usual Weight in Pounds: 225.0 lbs Have you lost weight without trying: Yes Have you been eating poorly because of a decreased appetite: Yes Recently been on tube feeds, TPN, or have any nutritional access device in place: No Have any large open wounds or wounds that are not healing: No Calculated Weight Change: [id number] Change in weight Score: 1 MST Screening Tool Score: 4 *Automatic Nutrition referral for a score of 2 or greater.*: Client states he has lost about 40lbs total this year after his thyroid cancer diagnosis in May 2024. Client states appetite has improved slightly. Client denies desire to see insurance executive.
--- NOTE | 2025-01-24 10:15 | BH.SGPN.GN ---
Behaviors/Verbalizations/Mental Status: []Pt alert and oriented, disheveled appearance. Eye contact poor. Motor activity appropriate. Speech within normal limits. Affect congruent, mood depressed. Thoughts linear, logical, no signs of hallucinations or delusions. Client Response/Progress/Benefit: [] Pt was an attentive and active participant, AEB taking notes and providing input in group discussion. Attentive during psychoeducation. Pt engaged during interactive discussion in which the group defined self-care and discussed its benefits. Group discussed barriers and benefits to self-care. Identified benefits as being more productive, less physical pain, feeling happier, less irritability, and being more capable. Pt participated in small groups where they worked to identify and challenged common self-care ?myths?. Benefited from increased awareness of self-care, its benefits, and the consequences of not utilizing self-care strategies. Pt connected with myths of self-care being self-indulgent. Will continue IOP tx to prevent decompensation, gain healthy coping skills, and improve social support. Narrative Note: []
[2025-01-24 10:47] VITALS: BP 150/92; PULSE 84
--- NOTE | 2025-01-24 11:10 | BH.SGPN.GN ---
Behaviors/Verbalizations/Mental Status: []Pt alert and oriented, casually dressed and groomed. Eye contact poor. Motor activity appropriate. Speech within normal limits. Affect constricted, mood dysthymic. Thoughts linear, logical, no signs of hallucinations or delusions. Client Response/Progress/Benefit: []Pt engaged participant AEB completing self-assessment worksheet and providing input throughout discussion. Participated in group discussion on the various areas of self-care. Pt completed worksheet identifying current self-care practices and what self-care activities pt wants to start using. Pt engaged in self-reflection activity in which pt's were asked to identify one area of self-care they would like to improve upon. Pt completed the task but chose to not share with the group. Appeared to benefit from completing the self-care evaluation and gaining insights into current self-care practices, as well as identifying areas in which pt ?would like to improve upon.?Will continue IOP to increase consistent use of healthy coping skills, improve independence, and prevent decompensation.
--- NOTE | 2025-01-28 10:10 | BH.SGPN.GN ---
Behaviors/Verbalizations/Mental Status: [] Eye contact is fair. Motor activity is appropriate. Appearance is disheveled. Speech is Appropriate. Mood is anxious and depressed. Affect is congruent. Thoughts are linear and logical. No evidence of psychosis. Client Response/Progress/Benefit: [] Pt receptive to session AEB listening attentively, however he did not take notes. Only contributed minimally while in small groups. Attentive during psychoeducation on the cognitive triangle and maintenance cycles. Pt attentive during group discussion reviewing the impact of daily activities and behaviors in either reinforcing unhealthy maintenance cycles and depression or assisting in reducing symptoms (?down? vs ?up? activities). Pt participated in his small group during interactive discussion in which the group identified their own common up activities (walking, listening to music, car rides, being outside, movement, creative projects, organizing, showering, etc) and down activities (isolating, substance use, sleeping to escapade, and engaging in compulsions). Appeared to benefit from increased awareness of current behaviors and impact these have on mental health. Will continue IOP to maintain safety, increase healthy coping, and improve functioning. Narrative Note: []
--- NOTE | 2025-01-28 11:10 | BH.SGPN.GN ---
Behaviors/Verbalizations/Mental Status: []Pt alert and oriented, disheveled in appearance and poor grooming. Eye contact poor. Motor activity appropriate. Speech within normal limits. Affect constricted, mood dysthymic. Thoughts linear, logical, no signs of hallucinations or delusions. Client Response/Progress/Benefit: [] Pt responded well to session, attentive and engaged in group discussions and activity. Actively engaged in continued discussion about up activities and down activities. Active participant as group discussed values and the benefits that knowing one's values can have on one's mental health. Client completed provided worksheet in which they identified most important personal values and wrote down one opposite action activity can engage in to be more congruent with his value. Benefited from increased awareness of their up activities and how incorporating their values into behavioral activation goals can positively impact mental health. Will continue in IOP to increase consistent use of healthy coping skills, challenge negative thoughts, and prevent decompensation.
--- NOTE | 2025-01-29 10:10 | BH.SGPN.GN ---
Behaviors/Verbalizations/Mental Status: [] Eye contact is fair to good. Motor activity is appropriate. Appearance is casual. Speech is soft, limited input. Mood is anxious and euthymic. Affect is congruent. Thoughts are linear and logical. No evidence of psychosis. Client Response/Progress/Benefit: []Client was an semi active participant in group discussion and experiential activity, though remaining mostly passive throughout. Attentive during psychoeducation on resilience. Participated in interactive discussion with peers on the definition of resilience and where it comes from. Group identified that resiliency can be impacted by; past experiences, personality, and current mental health state. Group also worked together to identify the benefits of being resilient and how it is related to mental health. Able to relate experiential activity of group juggle to topics of resilience. Worked well with peers in small group in which they identified factors that contribute to resilience. Benefited from increased awareness of resilience and the factors that contribute to building resilience. Will continue in IOP to prevent decompensation and further promote mood stability. Narrative Note: []
--- NOTE | 2025-01-29 11:10 | BH.SGPN.GN ---
Behaviors/Verbalizations/Mental Status: [] Client alert and oriented, casually dressed and groomed. Eye contact fair. Motor activity appropriate. Speech within normal limits. Affect flat, mood euthymic and depressed. Thoughts linear, logical, no signs of hallucinations or delusions Client Response/Progress/Benefit: [] Client responded well to session AEB completing the resilience worksheet provided. Client participated in the discussion and worked cooperatively with group to identify strategies to enhance each of the components discussed. Client reports belief they already use resilience trait of ?accepting change as a part of living.? Client stated they would like to continue to develop resilience trait of ?maintaining a hopeful outlook.? Client seemed to benefit from discussing strategies for improving personal resilience and identifying resilience traits Client already possesses.. Will continue IOP tx to promote mood stability, reduce negative thinking patterns, and increase distress tolerance skills. Narrative Note: []
--- NOTE | 2025-01-29 14:19 | BH.MDN ---
Multi-Disciplinary Note Note 30-min Individual: Time Started:: 09:34 Date: 01/29/25 Purpose of session/treatment goals addressed:: Purpose of session was to address tx goal #1 obj #2 Eye Contact:: Good Motor Activity:: Appropriate Appearance:: Casual Speech:: Appropriate Mood:: Depressed Affect:: Congruent Thoughts:: Linear, Logical and No evidence of hallucinations/delusions noted Staff Interventions:: thought challenging, psychoeducation on: (maintenance cycles), CBT techniques, strengths perspective and goal setting Client Response:: Pt responded well to session, open to meeting with therapist. Pt shared that he is finding the IOP program to be beneficial and less ?awkward? than initially expected. Described finding benefit in the support of a shared environment, as he does not feel as alone in what he is struggling with. Went on to note ongoing issues with low self-worth and negative self-talk, specifically, thoughts of being a burden to his parents. Pt reported that hearing others talk about where they are living and working is triggering for pt as he struggles to accept that he is now living with his parents. Pt struggles to find worth and value in himself if he is not ?contributing? to the family and society in the ways he feels he ?should be? at this point in his life. Pt has always struggled with independent living skills and believes that not being able to do these things on his own means he does not ?add anything? to his parents? lives, instead seeing himself as a burden. Therapist gently challenged pt on this and inquired whether there is anything else he adds to his parents? live and the world in general, such as love, compassion, or fun. Shared that his parents have verbalized appreciation for him and not viewing him as an inconvenience, but he struggles with believing this. Pt did do well to work with therapist on identifying small things he can do around the house to begin feeling he is contributing. Pt identified plans to begin more consistently showering without reminders, doing his laundry, as well as exercising regularly. Risks/Concerns:: Pt denies any active suicidal ideation, plan, or intent. Pt does endorse passive thoughts of but this is within established baseline. Progress Toward Goals/Plan:: Progress remains limited as pt continues to self-report depression, and significant negative self-talk. Often stops self from engaging in group activities out of fear of failure or disappointing the group and speaks negatively toward self in doing so. Does respond well to group encouragement and support however. Pt does identify finding the IOP program helpful and is gaining more social confidence as well. Recommended continued IOP tx to improve mood stability and prevent decompensation. Time Stopped:: 10:00
--- NOTE | 2025-01-30 09:00 | BH.SGPN.GN ---
Behaviors/Verbalizations/Mental Status: [] Eye contact is good. Motor activity is appropriate. Appearance is disheveled. Speech is Appropriate. Mood is depressed. Affect is flat. Thoughts are linear and logical. No evidence of psychosis. Reviewed daily check in sheet and no reports of suicidals which are slightly below baseline. Long-standing passive thoughts of . Client Response/Progress/Benefit: [] Pt participated when prompted. Distracted at times. Daily symptom tracker notes 3/5 for depression and 2/5 for agitation. Very brief check-in which has been typical for patient. His primary stressor continues to be his reliance on his parents for money, housing, transportation, and support. Feels like a burden. He is attempting more independent skills however from his perspective he continues to not meet his expectations which further leads to his poor self-image. Group helped him reframe negative automatic thoughts which was beneficial. Limited progress noted. Will continue in IOP to maintain safety, prevent decompensation/re-admission, increase healty coping, and improve functioning. Narrative Note: []
--- NOTE | 2025-01-30 10:10 | BH.SGPN.GN ---
Behaviors/Verbalizations/Mental Status: [] Client alert and oriented, casually dressed and groomed. Eye contact good. Motor activity appropriate. Speech within normal limits. Affect congruent, mood euthymic Thoughts linear, logical, no signs of hallucinations or delusions. Client Response/Progress/Benefit: [] Client responded well to session, semi attentive during psychoeducation on SMART goals (Specific, Measurable, Achievable, Realistic, and Time-bound) and engaged in group experiential activity. Participated in an interactive discussion with peers in which they worked together to define what a goal is and the benefits of having goals. Group identified benefits as; helps MH, improves motivation, improves confidence, and personal growth. Participated in interactive discussion in which group identified barriers to setting goals and following through with goals. Group barriers included health, lack of supports, making excuses, and avoidance. Benefited from increased awareness of benefits and strategies for goal-setting. Will continue in IOP tx to improve mood stability, reduce negative thinking patterns, and improve daily functioning. Narrative Note: []
--- NOTE | 2025-01-30 11:10 | BH.SGPN.GN ---
Behaviors/Verbalizations/Mental Status: [] Client alert and oriented, casually dressed, appropriately groomed. Eye contact good. Motor activity appropriate. Speech within normal limits. Affect congruent, mood euthymic. Thoughts linear, logical, no signs of hallucinations or delusions. Client Response/Progress/Benefit: [] Client was engaged during discussion and willing to complete the worksheet challenging them to develop a personal SMART goal. Client chose the goal of walking in [place] weekly 2-3x. Client stated this will benefit them by increasing overall strength. Client identified barriers which included being tired and transportation. Identified for being tired, they will conserve their energy to be able to walk. Client receptive to identifying solutions for these barriers and willing to begin working on this goal. Benefited from this group by developing a short-term SMART goal related to mental health. Will continue IOP tx to increase healthy coping, improve daily functioning, and prevent decompensation. Narrative Note: []
--- NOTE | 2025-02-04 11:10 | BH.SGPN.GN ---
Behaviors/Verbalizations/Mental Status: []Pt alert and oriented, casually dressed and fairly groomed. Eye contact poor. Motor activity within normal limits. Speech within normal limits. Affect constricted, mood euthymic. Thoughts linear, logical, no signs of hallucinations or delusions. Client Response/Progress/Benefit: [] Pt responded well to session AEB Pt listening attentively to others and providing input at times during group discussion on the pay offs and costs of the different communication styles. Pt able to connect how current communication style impacts mental health. Connected with peers? comments about the importance of using assertive communication. Pt seemed to benefit from increasing awareness of healthy strategies to improve communication. Pt reported wanting to work on ?being assertive with what he needs.? Will continue IOP tx to prevent decompensation, improve daily functioning, and improve healthy coping skills.
--- NOTE | 2025-02-04 15:27 | BH.MDN ---
Multi-Disciplinary Note Note 30-min Individual: Time Started:: 10:30 Date: 02/04/25 Purpose of session/treatment goals addressed:: Purpose of session was to address tx plan goal #1 obj #1 Eye Contact:: Good Motor Activity:: Appropriate Appearance:: Casual Speech:: Appropriate Mood:: Depressed Affect:: Congruent Thoughts:: Linear, Logical and No evidence of hallucinations/delusions noted Staff Interventions:: thought challenging, motivational interviewing, psychoeducation on: (behavioral activation), CBT techniques and goal setting Client Response:: Pt responded well to session, open to meeting with therapist. Pt shared that he had several recent appointments over the past week with his watch case polisher, as well as his outpatient licensed psychologist and individual counselor. Continues to struggle with finding outpatient counseling beneficial as he struggles with maintaining focus doing these appointments. Went on to describe additional upcoming appointments in February with his shop and alteration tailor to ensure that his thyroid is continuing to heal and there are no remaining tumor cells. Pt expressed some anxiety about this but is trying not to think too much about it. Additional progress noted in pt?s follow-through with goals identified from prior session. Pt noted he has done well to get back into showering regularly, though does continue to rely on mom to help hold him accountable with this. Additional progress in walking to the end of his driveway and back each day, as well as sitting out on the porch to read. Pt noted this has helped reduce isolation and not be sitting alone in the dark. Pt went on to note wanting to continue to find ways to contribute to the household. Explained that he used to cook more when he lived in [place] but has not done so since moving back with his parents. 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 Pt receptive of discussion on tracking these daily accomplishments in a journal to see the various areas he is regularly contributing. Reports recognizing the theoretical merit in this but doubts his ability to do consistently. Willing to try however. Risks/Concerns:: Pt denies any active suicidal ideation, plan, or intent. Pt does endorse passive thoughts of but this is within established baseline. Progress Toward Goals/Plan:: Progress noted. Pt reports ongoing depressive sx and low self-worth; however, did indicate that he has not had as many passive thoughts of and is beginning to see a future for himself. Expressed following through with goals from last session and is more motivated to continue to work towards these goals. Pt reports that he has seen improvements in his mood when walking and found himself communicating more within his online support networks. Interested in getting back into cooking as well. Pt does continue to struggle with negative self-talk associated with not being employed. Will continue IOP tx to improve mood stability, self-worth, and prevent decompensation. Time Stopped:: 10:55
--- NOTE | 2025-02-06 09:00 | BH.SGPN.GN ---
Behaviors/Verbalizations/Mental Status: [] Eye contact is fair. Motor activity is appropriate. Appearance is disheveled. Speech is Appropriate. Mood is depressed. Affect is congruent. Thoughts are linear and logical. No evidence of psychosis. Reviewed daily check in sheet and no reports of suicidal ideations Client Response/Progress/Benefit: [] Pt participated when prompted. Attentive. Very brief check-in which has been baseline for patient. Shared that he is trying to take a more active role in his house through helping parents with household tasks. Very low self-confidence that he can complete these tasks due to past perceived failures. He managed to complete certain tasks which helped improve self-esteem and self-worth. Also reports that he didn't beat myself up when he made mistakes. Some progress is noted. Benefited from group support, encouragment, and feedback. Will continue in IOP to maintain safety, prevent decompensation/re-admission to psych unit, and increase healthy coping. Narrative Note: []
--- NOTE | 2025-02-06 10:10 | BH.SGPN.GN ---
Behaviors/Verbalizations/Mental Status: [] Pt alert and oriented, disheveled in appearance. Eye contact poor. Motor activity appropriate. Speech within normal limits. Mood: depressed. Affect: constricted. Thoughts linear, logical, no signs of hallucinations or delusions. Client Response/Progress/Benefit: [] Pt participated when prompted during group discussions. Attentive during psychoeducation on self-sabotage and its impact on mental health. Attentive as peers worked to define self-sabotage and identify reasons individuals perform self-sabotage behaviors (easy route at the time, feel as those we don't deserve any better, FOF, comfortable, etc). Attentive as peers identified the forms of self-sabotage that impact their mental health. Attentive during psychoeducation on types of self-sabotage; Procrastination, perfectionism, self-medication, poor communication,and chronic cancelling. Seemed to benefit from gaining awareness about the self-sabotage. Pt to continue IOP tx to improve daily functioning, increase heatlhy coping skills, and prevent decompensation.
--- NOTE | 2025-02-06 11:05 | BH.SGPN.GN ---
Behaviors/Verbalizations/Mental Status: [] Eye contact is fair. Motor activity is appropriate. Appearance is disheveled. Speech is Appropriate. Mood is dysthymic and anxious. Affect is congruent. Thoughts are linear and logical. No evidence of psychosis. Client Response/Progress/Benefit: [] Pt responded well to session, engaged and contributed in small groups. With peers, pt discussed things that would sabotage one's mental health wellness. Pt identified things pt personally does to sabotage as isolation and procrastination. Pt attentive during psychoeducation on ways to reduce self-sabotage and pt selected trying to stop negative thinking and intentional reflection?as skills that could help pt reduce self-sabotaging behaviors. Pt appeared to benefit from learning skills and gaining awareness of self-sabotaging behaviors. Pt will continue IOP tx to maintain safety, prevent decompensation/re-admission to psych unit, improve functioing, and to increase healthy coping. Narrative Note: []
--- NOTE | 2025-02-07 09:00 | BH.SGPN.GN ---
Behaviors/Verbalizations/Mental Status: [] Eye contact is good. Motor activity is appropriate. Appearance is casual. Speech is Appropriate. Mood is euthymic. Affect is full. Thoughts are linear and logical. No evidence of psychosis. Reviewed daily check in sheet and pt reports below baseline SI. Improvement from earlier scores. Client Response/Progress/Benefit: [] Pt participated when prompted. Attentive. Daily symptom tracker notes 3/5 for depression and 2/5 for agitation. Overall mood noted to be ?better?. Brief check in which is baseline for patient. He reported improved self-esteem stating that he was ?helpful? to others which made him feel good. Following through with tasks. Reported an situational stressor to the group and received feedback and suggestions which was beneficial. Progress noted. Benefited from group support and feedback. Will continue in IOP to maintain safety, prevent decompensation/re-admission, and improve functioning., Narrative Note: []
--- NOTE | 2025-02-07 10:10 | BH.SGPN.GN ---
Behaviors/Verbalizations/Mental Status: [] Pt alert and oriented, casually dressed and groomed. Eye contact good. Motor activity appropriate. Speech within normal limits. Affect congruent, mood euthymic. Thoughts linear, logical, no signs of hallucinations or delusions. Client Response/Progress/Benefit: [] Client engaged during group session as evidenced by contributions during group discussions, appearing to listen to others, and taking notes. Client engaged in small group discussion about barriers that keep people from having difficult conversations. Group identified potential reasons individuals avoid difficult conversations which included; feeling uncomfortable, reaction of others, fear, and not in a good place mentally. Group also identified benefits to having crucial conversations. Client seemed to benefit from increased awareness and education about importance of having difficult conversations and recognizing the impact of avoiding such conversations. Client to continue IOP to prevent decompensation, increase healthy coping, and improve functioning. Narrative Note: []
--- NOTE | 2025-02-07 11:10 | BH.SGPN.GN ---
Behaviors/Verbalizations/Mental Status: [] Pt alert and oriented, casually dressed and groomed. Eye contact good. Motor activity appropriate. Speech within normal limits. Affect congruent, mood euthymic. Thoughts linear, logical, no signs of hallucinations or delusions. Client Response/Progress/Benefit: []Pt was an active participant, engaged in activities and discussion. Pt able to identify ways they negatively contribute to crucial conversations and pt was engaged during psychoeducation of the different ways to build interpersonal effectiveness skills. Pt and peers practiced mirroring and active listening in partners. Group reviewed [employer] and used the handout to help map out how they would like a crucial conversation in their life to go. Pt shared with group that they want to have a crucial conversation with their parents about getting driving hours set up to eventually obtain a license. Pt will continue IOP tx to prevent decompensation, improve daily functioning, and increase self care. Narrative Note: []
== END 2025-02-07 23:59 ==
LOC: BHIOP 08:00
PROVIDERS: Referring Provider Student in an Organized Health Care Education/Training Program; Visit Provider Student in an Organized Health Care Education/Training Program
DX: F33.2 Major depressive disorder, recurrent severe without psychotic features (principal); F84.0 Autistic disorder
CPT/HCPCS: H2012; H2020; S9480; 90832

== ENCOUNTER 2025-02-10 08:35 | Outpatient (RCR) | payer MEDICAID, SELFPAY ==
--- NOTE | 2025-02-11 09:00 | BH.SGPN.GN ---
Behaviors/Verbalizations/Mental Status: [] Pt alert and oriented, Casually dressed and groomed. Eye contact fair. Motor activity appropriate. Speech within normal limits. Affect congruent, mood depressed. Thoughts linear, logical, no signs of hallucinations or delusions. Reviewed pt?s symptom tracker today, denies suicidal ideation, plan, and intent.02/11/25. Client Response/Progress/Benefit: []Pt was an active participant in group discussions. Attentive. Per patients daily symptom tracker, pt indicates a 3/5 for depression and a 1/5 for anxiety, with 5 being severe. Pt shared his mental health win as attending his appointment with his outpatient therapist. His other win was making cheddar biscuits for him and his family, which was a goal he had set with his individual therapist. Pt reported his stressor as feeling guilty about being dependant on his aging parents. Pt stated that he feels bad about asking for rides to IOP from his step father. Pt was supportive and attentive to others in the group. Pt seemed to benefit from support from peers. Will continue IOP tx to promote healthy coping mechanisms, reduce negative thinking patterns, and prevent decompensation.
--- NOTE | 2025-02-11 10:05 | BH.SGPN.GN ---
Behaviors/Verbalizations/Mental Status: [] Eye contact is poor. Motor activity is appropriate. Appearance is disheveled. Speech is Appropriate. Mood is anxious and depressed. Affect is congruent. Thoughts are linear and logical. No evidence of psychosis. Client Response/Progress/Benefit: [] Pt was an active participant during group discussions and group activities. This portion of group was very psychoeducation heavy and pt was attentive during psychoeducation. Engaged during activity in which they identified which type of foods (i.e. carbs, sugar, salt, fast food, caffeine, etc) they seek out when sad, tired, angry, stressed, anxious, etc. Pt was able to identify the impact that certain foods have on their mental health through group example which was beneficial. Benefited from increased awareness of the connection between nutrition and mental health. Will continue in IOP to prevent decompensation/re-admission to psych unit, maintain safety, and improve functioning.
--- NOTE | 2025-02-11 11:10 | BH.SGPN.GN ---
Behaviors/Verbalizations/Mental Status: []Pt alert and oriented, disheveled appearance. Eye contact good. Motor activity appropriate. Speech within normal limits. Affect congruent, mood euthymic and anxious. Thoughts linear, logical, no signs of hallucinations or delusions. Client Response/Progress/Benefit: [] Pt was an active participant during group discussions and group activities. This portion of group was very psychoeducation heavy and pt was attentive during psychoeducation. Engaged during activity in which they identified their own maintenance cycles with food and how it impacts their mental health symptoms. Pt and peers identified barriers to breaking these cycles as well as ways to combat barriers. Pt stated he wants to work on getting more fiber through supplements. Benefited from increased awareness of the connection between nutrition and mental health and from identifying strategies. Will continue in IOP to promote mood stability, increase social skills, and improve daily functioning. Narrative Note: []
--- NOTE | 2025-02-13 09:00 | BH.SGPN.GN ---
Behaviors/Verbalizations/Mental Status: [] Pt alert and oriented, Casually dressed and groomed. Eye contact fair. Motor activity appropriate. Speech within normal limits. Affect congruent, mood depressed. Thoughts linear, logical, no signs of hallucinations or delusions.Reviewed pt?s symptom tracker today, denies suicidal ideation, plan, and intent.02/13/25 Client Response/Progress/Benefit: []Pt was an active participant in group discussions. Attentive. Per patients daily symptom tracker, pt indicates a 3/5 for depression and a 1/5 for anxiety, with 5 being severe. Pt shared his first mental health positive as spending the day online talking about his hobbies and things that he enjoys. His other mental health positive was getting laundry done, despite it taking him a long time. Pt's stressor continues to be guilt and feeling like a burden on his aging parents who he relies on for rides and other necessities. Pt seemed to benefit from support from peers. Will continue IOP tx to promote healthy coping mechanisms, improve confidence, and prevent decompensation.
--- NOTE | 2025-02-13 10:00 | BH.SGPN.GN ---
Behaviors/Verbalizations/Mental Status: [] Eye contact is poor. Motor activity is appropriate. Appearance is disheveled. Speech is Appropriate. Mood is anxious and depressed. Affect is congruent. Thoughts are linear and logical. No evidence of psychosis. Client Response/Progress/Benefit: [] Pt was attentive during group AEB client listening attentively to peers. Limited participation in group discussions. Attentive as group worked on defining?self-confidence?and identifying benefits of?self-confidence which included; increased self-esteem, improved relationships, increased resilience, better adaptive coping, stronger boundaries, helps us try new tasks, decreased depression, more hopeful, and more creative. Also attentive during interactive discussion on factors that impact one's self confidence such as trauma, upbringing, economic status, and current/past relationships. Benefited from increased education on?self-confidence?and what effects it. Pt will continue IOP to prevent decompensation/re-admission to psych unit, increase healthy coping, and improve functioning. Narrative Note: []
--- NOTE | 2025-02-13 11:10 | BH.SGPN.GN ---
Behaviors/Verbalizations/Mental Status: [] Client alert and oriented, casually dressed and groomed. Eye contact good. Motor activity appropriate. Speech within normal limits. Affect congruent, mood depressed. Thoughts linear, logical, no signs of hallucinations or delusions. Client Response/Progress/Benefit: [] Pt engaged in session AEB client listening attentively to peers and providing input. Attentive and contributed to discussion as group worked on identifying thought patterns and behaviors that negatively effect self-confidence. Pt identified behaviors that effect their confidence as: self-judgement and negative self-talk. Engaged in confidence building activity and worked with the group to identify strategies for improving self-confidence. Pt identified plans to begin setting small daily goals as a means of improving own self-confidence. Benefited from increased education on self-confidence building skills. Pt will continue IOP tx to increase self-confidence, improve emotional regulation skills, and prevent decompensation. Narrative Note: []
--- NOTE | 2025-02-14 07:48 | PCM.BH.PN ---
Intake Vital Signs 01/24/25 10:47 02/14/25 07:48 Height 5 ft 7 in 5 ft 7 in Weight: 215 lb BP 150/92 H Pulse 84 Intake Visit Reasons: follow up Allergies cefaclor (From [facility]) Allergy (Verified 01/24/25 10:01) Hives strawberry (strawberries) Allergy (Verified 01/24/25 10:01) Hives Medications ?Medication ?Instructions ?Recorded ?Confirmed ?Type atorvastatin 20 mg tablet 20 mg PO DAILY 11/21/24 01/24/25 History azelastine 137 mcg (0.1 %) nasal 2 spray intranasal .QD 11/21/24 01/24/25 History spray benztropine 1 mg tablet 1 mg PO DAILY 11/21/24 01/24/25 History famotidine 40 mg tablet 40 mg PO PRN 11/21/24 01/24/25 History fluticasone propionate 50 2 spray intranasal DAILY 11/21/24 01/24/25 History mcg/actuation nasal spray,suspension ipratropium bromide 42 mcg (0.06 2 spray intranasal DAILY 11/21/24 01/24/25 History %) nasal spray lisinopril 10 mg tablet 10 mg PO DAILY 11/21/24 01/24/25 History loratadine 10 mg tablet 10 mg PO DAILY 11/21/24 01/24/25 History polyethylene glycol 3350 17 17 g PO DAILY PRN constipation 11/21/24 01/24/25 History gram/dose oral powder levothyroxine 50 mcg tablet 50 mcg PO DAILY 01/24/25 01/24/25 History sertraline 100 mg tablet 200 mg PO DAILY 01/24/25 01/24/25 History lurasidone 20 mg tablet 20 mg PO QPM #30 tabs 02/14/25 Rx HPI () History of Present Illness History provided by: patient Chief complaint: depression HPI: Bernard Bowen is a 34 year old male who presents today for follow up evaluation. Patient reports that IOP has been about the same. Still feeling very depressed, but some days is feeling better. Is still upset about his parents having to help him out and wishes that he could be more independent. Has done 2/3rd of the time that he has taken latuda with a meal but no significant improvement. Sleep has been good, but also at times will oversleep. Will take naps out of boredom and sometimes because fatigue. Spends most of his time reading books or things online. Unsure if there has been any changes in appetite. Denies any current thoughts of suicide, but still having some passive thoughts that people would be better off without me. Has not been exercising nearly as much as he thinks he should be. Did discuss setting more finite goals like walking 1 mile instead of just walking more. Continues to follow with Mariana ellis for mental health. Review of systems () Constitutional Denies: fever(s), chills, change in weight or fatigue Eyes Denies: change in vision or blurry vision Ears, Nose, Mouth, Throat Denies: throat pain, neck pain or change in hearing Cardiovascular Denies: chest pain, palpitations or dyspnea Respiratory Denies: dyspnea, cough or wheezing Gastrointestinal Reports: constipation; Denies: abdominal pain, nausea, vomiting or diarrhea Genitourinary Denies: dysuria or urinary frequency Musculoskeletal Denies: back pain, neck pain, joint pain or muscle weakness Integumentary/Breast Denies: rash or new lesions Neurological Denies: headache(s), dizziness or confusion Endocrine Denies: fatigue or excessive sweating Hematologic/Lymphatic Denies: easy bruising or easy bleeding Allergic/Immunologic Denies: wheezing Exam Mental Status Exam- Psych () Appearance unkempt and obese Attitude withdrawn Activity/Motor Behavior psychomotor slowing and staring Speech regular rate, regular volume and regular prosody Mood depressed Affect blunted Thought Process linear and logical Thought Content no delusions and no hallucinations Suicidal Ideation passive; Not active and No intent Homicidal Ideation none Attention intact Concentration intact Sensorium/Orientation awake, alert and oriented x3 Memory/Cognition other (Somewhat difficult to assess initial evaluation) Insight limited Judgement limited Assessment & Plan () Assessment & Plan (1) Major depressive disorder, recurrent severe without psychotic features: Plan: ? Continue Zoloft 200 mg every day - Titrate lurasidone to 100 mg every day - Patient was informed of the risk, benefits, and possible side effects of antipsychotics medications. Side effects of these medications can include but are not limited to orthostatic hypotension (low blood pressure), weight gain, metabolic side effects, extrapyramidal side effects, and tardive dyskinesia. If you notice any abnormal movements including involuntary movement of muscles of face, lips, torso or legs please contact the office immediately. - continue other meds as before Charges/Coding Multi Select Codes Behavior Health Behavior Health EST Pt E/M: 77968 Est Pt Level IV
--- NOTE | 2025-02-14 09:00 | BH.SGPN.GN ---
Behaviors/Verbalizations/Mental Status: [] Eye contact is poor. Motor activity is appropriate. Appearance is disheveled. Speech is Appropriate. Mood is depressed. Affect is congruent. Thoughts are linear and logical. No evidence of psychosis. Reviewed daily check in sheet and no reports of suicidal ideations or intent. Client Response/Progress/Benefit: [] Pt participated when prompted. Attentive. Very brief check-in. Reports feeling ?sad?. Able to identify mental health wins such as ? I got out of bed? He is engaging with others online through chat forums which he benefits from. He continues to see himself as a burden to his parents feeling as if he is unable to complete tasks around the house. Limited progress noted. Benefited from group support, encouragement, and feedback. Will continue in IOP to maintain safety, improve functioning, prevent decompensation. Narrative Note: []
--- NOTE | 2025-02-14 11:10 | BH.SGPN.GN ---
Behaviors/Verbalizations/Mental Status: [] Pt alert and oriented, casually dressed and groomed. Eye contact good. Motor activity appropriate. Speech within normal limits. Affect congruent, mood euthymic. Thoughts linear, logical, no signs of hallucinations or delusions. Client Response/Progress/Benefit: [] Pt was an engaged participant AEB listening attentively to others and providing input throughout group. Pt worked within their small group to identify strategies to manage inappropriate guilt. Identified a personal example of inappropriate guilt as ?feeling guilt for not being able to drive? Pt wants to work on combatting inappropriate guilt by ?taking steps to get lisence.? Pt seemed to benefit from learning about strategies to manage appropriate and inappropriate guilt. Pt to continue IOP tx to prevent decompensation, gain healthy coping skills, and increase fucntioning. Narrative Note: []
--- NOTE | 2025-02-14 14:06 | BH.TPR ---
Treatment Plan Review Demographics Date of Admission:: 01/21/25 Date of Treatment Plan Review:: 02/14/25 Admitting Diagnoses:: Major Depressive Disorder, Autism Spectrum Disorder Current Diagnoses:: Major Depressive Disorder, Autism Spectrum Disorder Patient Status Patient's Response to Treatment:: Pt has responded well to session AEB consistently attending IOP and engaging in both individual and group therapy sessions. Pt consistently completes homework provided from individual counseling. Pt contributes actively during group discussions, takes notes, appears to listen to others, and engages in group activities. Pt's overall DSM-5 scores have decreased by 11% since admission and pt reports he is feeling more capable some of the time with managing his depressive sx. Pt has been able to function better at home and with supports. Status of Current Problems and Symptoms: Pt continues to report symptoms of depression that impact overall functioning and self-worth, as well as reinforce passive thoughts of . SI has reduced by 50% since admission however. Pt reports depression is still higher at times he needs to ask supports for help. Pt has also gained insight that he has limited independence and would like to work on this as well as neutral self-talk statements. Pt is working on being more self-compassionate. Progress Problem #1: Problem Name:: Depression, Si Status of Goals:: Obj 1: in progress. Pt is beginning to better identify skills to improve mood and is willing to more consistently practice personal hygiene skills as well as engage in hobbies outside of the internet. Pt is walking daily and has interests in getting back into cooking regularly. Obj 2: In progress. Insight into negative self-talk and impact this has on reinforcing depressive sx. However, pt struggles with believing positive self-talk messages and finding evidence against self-deprecating thoughts. Team Recommendations:: Treatment team encourages pt to continue working on distress tolerance skills, positive self-talk and behavioral activation skills, and tracking progress.
--- NOTE | 2025-02-14 15:42 | BH.MDN ---
Multi-Disciplinary Note Note 30-min Individual: Time Started:: 10:40 Date: 02/14/25 Purpose of session/treatment goals addressed:: Purpose of session was to address tx plan goal #1 obj #1 & #2 Eye Contact:: Good Motor Activity:: Appropriate Appearance:: Casual Speech:: Appropriate Mood:: Dysthymic Affect:: Congruent Thoughts:: Linear, Logical and No evidence of hallucinations/delusions noted Staff Interventions:: thought challenging, motivational interviewing, CBT techniques, strengths perspective and goal setting Client Response:: Pt responded well to session, actively engaged throughout. Pt reports progress in various areas, including; following through with goal of making favorite biscuit recipe, brushing teeth and showering more consistently, as well as walking up and down the driveway daily. Noted that engaging in these activities is likely improving his mood in some ways and he overall is feeling less depressed; however, continues to struggle with significant negative core belief that he is a burden. Ongoing difficulties with accepting his current level of functioning and need for assistance from his mother and step-father and his daily life. Pt expressed increased negative self-talk on the days his step-father does something such as drive pt to an appointment. Pt denies beginning the daily accomplishment log as discussed in prior session, though reports he is working with outpatient therapist on using more neutral self-talk statements. Pt continues to identify a desire to further contribute to the family unit, as well as develop increased levels of independence. Identifies goals for the week as independently doing at least 2 loads of laundry. Went on to share that he has been able to reach out more online to others who are also experiencing a cancer diagnosis and is finding this to be validating and supportive. Engaging in online comic book forums which pt describes as enjoyable as well. Pt identified interest in continuing to develop online supportive resources, as he struggles with in-person socialization. Receptive of information on a local but virtual autism support group from adults. Insight into benefits in connecting with others who may struggle similarly in social settings. Plans to contact the photography colorist for homework. Risks/Concerns:: Pt denies any active suicidal ideation, plan, or intent. Pt does endorse passive thoughts of but this is within established baseline. Progress Toward Goals/Plan:: Continued progress. Pt notes improvement in overall mood and reduction in depressive sx. Is engaging in several behavior activation goals which he believes in improving mood as well. Does continued to struggle with significant negative core beliefs and feeling like he is a burden which is reinforced when having to ask for help with ADLs from family. Is making progress in independent living skills and working to apply neutral self-talk messages. Pt reaching out to online supportive resources as well. Recommended continued IOP tx to further improve self-compassion and reduce self-deprecation, as well as improve functioning at baseline. Time Stopped:: 11:05
--- NOTE | 2025-02-17 09:00 | BH.SGPN.GN ---
Behaviors/Verbalizations/Mental Status: [] Pt alert and oriented, Casually dressed and groomed. Eye contact fair. Motor activity appropriate. Speech within normal limits. Affect congruent, mood calm. Thoughts linear, logical, no signs of hallucinations or delusions. Reviewed pt?s symptom tracker today, denies suicidal ideation, plan, and intent.02/17/25 Client Response/Progress/Benefit: []Pt was an active participant in group discussions. Attentive. Per patients daily symptom tracker, pt indicates a 4/5 for depression and a 2/5 for anxiety, with 5 being severe. Pt's first mental health positive was sorting his medication into a pill sorter, which he reports is helpful because he sometimes forgets to take his medication. Pt's second mental health win was making it to group today. Pt stated that this is not really a difficult task for him, but listed it as a win. Pt's stressor continues to be his reliance on his mother and step-father. Pt was supportive and attentive to others in the group. Pt seemed to benefit from support from peers. Will continue IOP tx to promote healthy coping mechanisms, improve confidence, and prevent decompensation.
--- NOTE | 2025-02-17 10:10 | BH.SGPN.GN ---
Behaviors/Verbalizations/Mental Status: []Pt alert and oriented, casually dressed and groomed. Eye contact good. Motor activity appropriate. Speech within normal limits. Affect congruent, mood content. Thoughts linear, logical, no signs of hallucinations or delusions. Client Response/Progress/Benefit: []Pt participated during small group discussions. Attentive during psychoeducation about defense mechanisms. Showed engagement during small group discussions and helped group identify which defense mechanisms were maladaptive, adaptive, or ?somewhere in the danielle.? Pt worked with small group on identifying how each defense mechanism can impact mental health and gave examples. Pt stated he learned that defense mechanisms can be learned behaviors.?Pt reported benefit from normalizing why people use maladaptive defense mechanisms. Seemed to benefit from gaining awareness about the different defense mechanisms. Pt to continue IOP tx to prevent decompensation, improve daily functioning, and gain healthy coping skills. Narrative Note: []
--- NOTE | 2025-02-17 11:10 | BH.SGPN.GN ---
Behaviors/Verbalizations/Mental Status: []Pt alert and oriented, disheveled appearance. Eye contact good. Motor activity appropriate. Speech within normal limits. Affect constricted, mood content. Thoughts linear, logical, no signs of hallucinations or delusions. Client Response/Progress/Benefit: [] Pt responded well to session, participating in activity and small group discussion. Group reviewed the rest of the defense mechanisms and discussed how these are adaptive, maladaptive, or somewhere in the danielle. Pt's defense mechanisms included denial and anticipation. Shared that he gained awareness of the importance of self-compassion. Pt listened to elephant keeper teach different skills to help pt?s cope with or change their defense mechanisms. Pt appeared to benefit from gaining insight to the different defense mechanisms and learning coping skills. Pt will continue IOP tx to prevent decompensation, improve daily functioning, and gain independent skills. Narrative Note: []
--- NOTE | 2025-02-19 09:05 | BH.SGPN.GN ---
Behaviors/Verbalizations/Mental Status: []Eye contact is good. Motor activity is appropriate. Appearance is casual. Speech is Appropriate. Mood is dysthymic. Affect is congruent. Thoughts are linear and logical. No evidence of psychosis. Reviewed daily check in sheet and pt denies SI, plan, or intent as of this date 02/19/25. Client Response/Progress/Benefit: [] Pt was an active participant in group discussions. Attentive. Did well to identify 2 mental health wins, which included being able to make progress with challenging inappropriate guilt for needing transportation assistance from family. Reminding self they want to help. Additional win noted as grabbing some new reading materials from his old house while in the area. Stressor noted as struggling with ongoing feelings of being a burden. Appeared to benefit from provided support, encouragement, and feedback. Will continue IOP tx to improve mood stability, develop healthy coping repertoire, and prevent decompensation. Narrative Note: []
--- NOTE | 2025-02-19 10:10 | BH.SGPN.GN ---
Behaviors/Verbalizations/Mental Status: []Pt alert and oriented, disheveled in appearance. Eye contact poor. Motor activity appropriate. Speech within normal limits. Affect constricted, mood dysthymic. Thoughts linear, logical, no signs of hallucinations or delusions. Client Response/Progress/Benefit: [] Pt was an active participant AEB taking notes and engaging in group activity. Connected with the topic of pitfalls and listened to group discussion on barriers that prevent from choosing a healthier path to mental wellness. Group worked together to identify examples of personal pitfalls. These examples included; having unrealistic expectations, not trusting, not asking for help, and shutting down. Pt benefited from group as pt learned to better identify potential barriers to improving mental health symptoms. Pt will continue IOP tx to improve independence, improve daily functioning, and prevent decompensation.
--- NOTE | 2025-02-19 10:10 | BH.SGPN.GN ---
Behaviors/Verbalizations/Mental Status: []Pt alert and oriented. Casually dressed and groomed, eye contact poor. Motor activity appropriate. Speech within normal limits. Affect congruent. Mood depressed. Thoughts linear, logical, no signs of hallucinations or delusions. Client Response/Progress/Benefit: [] Pt was an active participant, taking notes and engaging in group discussion and activity. Connected with the topic of pitfalls and participated in group discussion about barriers that prevent from choosing a healthier path to mental wellness. Pt participated in discussion on pitfalls, what they are, and ways that we stay stuck in them. Group worked together to identify examples of internal and external pitfalls, including depression, isolation, and suicidal thoughts. Pt benefited from group and psychoeducation on pitfalls as pt learned to better identity potential barriers to improving mental health symptoms. Pt was an active participant in activity meant to demonstrate pitfalls and how to cope with them Pt became frustrated at himself during the activity, having to take a moment to sit out. Pt will continue IOP tx decrease negative thinking patterns, improve daily functioning, and prevent decompensation.
--- NOTE | 2025-02-19 11:10 | BH.SGPN.GN ---
Behaviors/Verbalizations/Mental Status: []Client alert and oriented, disheveled appearance. Eye contact good. Motor activity appropriate. Speech within normal limits. Affect flat, mood depressed. Thoughts linear, logical, no signs of hallucinations or delusions. Client Response/Progress/Benefit: [] Pt receptive of session, engaged throughout AEB Pt actively listening and contributing to discussion as well as taking notes.? Pt participated in the experiential activity and did well to communicate ideas with peers and manage emotions. Pt attentive as group processed how the emotions and perspective of the group impacted the activity. Pt was highly encouraging during the activity which helped peers. Group worked together to identify different coping skills to help manage pitfalls. Pt identified pitfalls they struggle with as giving into negative thoughts and isolation. Pt plans to work on their pitfall by ?challenging my perspective.? Benefited from identifying personal pitfalls and strategies to overcome these pitfalls. Pt will continue IOP tx to increase distress tolerance, gain healthy coping skills, and gain healthy support. Narrative Note: []
--- NOTE | 2025-02-20 09:00 | BH.SGPN.GN ---
Behaviors/Verbalizations/Mental Status: [] Eye contact is good. Motor activity is appropriate. Appearance is casual. Speech is Appropriate. Mood is depressed and anxious. Affect is congruent. Thoughts are linear and logical. No evidence of psychosis. Reviewed daily check in sheet and no reports of suicidal ideations Client Response/Progress/Benefit: [] Pt participated when prompted. Attentive. Daily symptom tracker notes 2/5 for anxiety and 3/5 for depression. Able to identify mental health wins. When asked about his mental health he states? ?I?m feeling a little better?. When asked how he knows he is feeling better he states? ?I don?t feel like hurting myself anymore?. Progress noted. Benefited from group support, encouragement, and feedback. Will continue in IOP to maintain safety, prevent decompensation/re-admission to psych unit, and increase healthy coping Narrative Note: []
--- NOTE | 2025-02-20 10:30 | BH.MDN_ITS ---
Multi-Disciplinary Note Note 30-min Individual: Time Started:: 10:30 Date: 02/20/25 Purpose of session/treatment goals addressed:: Reviewed current symptoms and progress in IOP. Addressed treatment plan goal 1. Eye Contact:: Poor Motor Activity:: Appropriate Appearance:: Disheveled Speech:: Appropriate Mood:: Dysthymic Affect:: Congruent Thoughts:: Linear, Logical and No evidence of hallucinations/delusions noted Staff Interventions:: strengths perspective and goal setting Client Response:: The patient reports, ?I don?t want to hurt myself as much anymore.? He demonstrates difficulty identifying coping strategies that have contributed to a reduction in depressive symptoms and hopelessness; however, he believes that residing with his family has been beneficial. The patient previously lived alone for several months, during which he experienced significant social isolation that culminated in a suicide attempt. Currently, he continues to endorse feelings of being a burden to his family, though he demonstrates insight by acknowledging that this perception is self- generated and not based on verbalized statements from family members. He also affirms that his family ?loves? him. The patient spends the majority of his day engaged in reading, estimating 6?8 hours daily, and identifies this activity as his primary source of enjoyment. In an effort to reduce perceived burden, he has been attempting to assist with household tasks, though he reports limited confidence in his ability to complete them effectively. His stated goal for the upcoming week is to vacuum his room. The patient reports that his mother frequently reminds him to shower and complete activities of daily living (ADLs), as he often forgets. To promote independence and reduce reliance on prompts, he collaborated with the therapist to set phone reminders for showering. Additionally, he has initiated daily exercise, which he reports has improved physical movement and may positively impact mood. Risks/Concerns:: No reports of suicidal thoughts today. Progress Toward Goals/Plan:: Consistent attendance in IOP. This past week pt has been more engaged in group discussions as well as more social with peers. Recently contacted local virtual Autism support group and received instructions on how to join. He plans to join the group. Pt responds well to positive reinforcement and clear directions. Improvement on reframing and challenge automatic negative thoughts. It's OK that I'm not working because I just had cancer I'm working on getting better . Time Stopped:: 10:55
--- NOTE | 2025-02-20 11:10 | BH.SGPN.GN ---
Behaviors/Verbalizations/Mental Status: []Client alert and oriented, casually dressed and poorly groomed. Eye contact poor. Motor activity appropriate. Speech within normal limits. Affect congruent, mood dysthymic. Thoughts linear, logical, no signs of hallucinations or delusions Client Response/Progress/Benefit: [] Pt responded well to session, attentive. Engaged in psychoeducation and discussion about finishing the stages of change. Did well to process activity and work with group to relate the strategies used to overcome barriers in the activity to managing change in own life. Pt identified a change they would like to make is to follow through with appointments more consistently. Pt identified currently being in preparation stage for this change. Pt stated goal is to write down all appointments and set alarms on his phone. Appeared to benefit from identifying a small goal to work towards. Pt will continue IOP tx to prevent decompensation, improve independence, and improve daily functioning.
--- NOTE | 2025-02-25 09:00 | BH.SGPN.GN ---
Behaviors/Verbalizations/Mental Status: [] Eye contact is poor. Motor activity is appropriate. Appearance is discheveled. Speech is Appropriate. Mood is dysthymic. Affect is congruent. Thoughts are linear and logical. No evidence of psychosis. Reviewed daily check in sheet and no reports of suicidal ideations Client Response/Progress/Benefit: [] Pt participated at times during the group discussion. He has been more engaged in group discussions this week. Very brief check-in. Met with his outpatient therapist yesterday. According to pt his therapist believes that he might have OCD tendencies in the form on intrusive thoughts. He is concerned about this and how it will impact his treatment. Mood is ?worried?. Progress noted. More engaged in group. Benefited from group support and encouragement. Will continue in IOP to maintain safety, prevent decompensation/re-admission to psych unit, and increase healthy coping. Narrative Note: []
--- NOTE | 2025-02-25 10:10 | BH.SGPN.GN ---
Behaviors/Verbalizations/Mental Status: []Eye contact is good. Motor activity is appropriate. Appearance is casual. Speech is Appropriate. Mood is content. Affect is congruent. Thoughts are linear and logical. No evidence of psychosis. Client Response/Progress/Benefit: []Pt was an active participant in group discussion. Engaged and attentive during psychoeducation and interactive discussion on coping skills, why people use unhealthy coping skills, how to replace unhealthy coping skills, and internal vs external coping skills. Attentive as peers came up with list of unhealthy coping skills. Pt reported personally, they tend to either shut-down and self-deprecate or isolate. Group discussed the effects of maladaptive coping skills on mental health. Benefited from increased understanding of unhealthy coping skills and the need for developing healthy internal and external coping skills. Actively participated during experiential group activity and was able to related this activity to group topic. Will continue in IOP to promote healthy thinking patterns, apply healthy coping skills, and promote mood stability. Narrative Note: []
--- NOTE | 2025-02-25 11:10 | BH.SGPN.GN ---
Behaviors/Verbalizations/Mental Status: [] Client alert and oriented, neatly dressed and groomed. Eye contact fair to good. Motor activity appropriate. Speech within normal limits. Affect congruent, mood euthymic. Thoughts linear, logical, no signs of hallucinations or delusions. Client Response/Progress/Benefit: [] Client responded well to session AEB taking notes and providing input and examples throughout. Group discussed the different categories of coping skills which included distraction, emotional release, grounding, self-love, and access to greater self, and thought challenging. Client created a coping skill menu identifying various skills to try in each category. Client?s coping skill menu included: opposite action, joining a cause, writing a letter and destroying it, and walking. Appeared to benefit from increasing repertoire of healthy coping skills. Client reports feeling less depressed, but client has yet to see consistent mood stability for over two weeks. Client will continue IOP tx to improve daily functioning, reduce negative thinking, and prevent decompensation. Narrative Note: []
--- NOTE | 2025-02-26 10:15 | BH.SGPN.GN ---
Behaviors/Verbalizations/Mental Status: [] Client alert and oriented, casually dressed and groomed. Eye contact good. Motor activity appropriate. Speech within normal limits. Affect constricted, mood euthymic. Thoughts linear, logical, no signs of hallucinations or delusions. Client Response/Progress/Benefit: [] Client responded well to session AEB taking notes throughout and listening attentively to others. Client was attentive throughout group activity identifying famous individuals and how they overcame failure to be successful. Client helped group identify how fear of failure can impact mental health and relationships. Group identified it leads to self-sabotage, not trying, avoidance, and isolation. Client participated in experiential activity, working with group members to problem solve. Appeared to benefit from increased knowledge of fear of failure. Will continue IOP tx to improve self-confidence, increase postive self care, and reduce avoidance. Narrative Note: []
--- NOTE | 2025-02-26 11:15 | BH.SGPN.GN ---
Behaviors/Verbalizations/Mental Status: [] Client alert and oriented, casually dressed and groomed. Eye contact good. Motor activity appropriate. Speech within normal limits. Affect constricted, mood euthymic. Thoughts linear, logical, no signs of hallucinations or delusions. Client Response/Progress/Benefit: [] Client responded well to session, engaged in the experiential activity and attentive throughout group processing. Client completed fear of failure worksheet and was able to identify thoughts and behaviors that reinforce personal fear of failure including fear of hurting others. Client participated in small group discussion regarding strategies to overcome fear of failure. Identified wanting to work on opposite action. Appeared to benefit from increased knowledge of strategies to combat fear of failure and gaining self-awareness. Client will continue IOP tx to promote gains in reduced depressive symptoms and increase overall functioning. Narrative Note: []
--- NOTE | 2025-02-28 10:10 | BH.SGPN.GN ---
Behaviors/Verbalizations/Mental Status: [] Pt alert and oriented, casually dressed and groomed. Eye contact fair. Motor activity appropriate. Speech within normal limits. Affect full , mood euthymic, Thoughts linear, logical, no signs of hallucinations or delusions. Client Response/Progress/Benefit: [] Pt participated in group discussion. Group worked together to identify benefits of healthy relationships which included improved mental health, encouragement, motivation, accountability, validation, connection, someone to share experiences with, and support during challenges. Group identified factors that lead to unhealthy relationships which included trauma, lack of communication, and substance use. Benefited from increased insight and awareness of benefits of healthy relationships and factors that contribute to unhealthy relationships. Will continue in IOP to increase consistent use of healthy coping skills, challenge negative thoughts, and prevent decompensation. Narrative Note: []
--- NOTE | 2025-02-28 11:10 | BH.SGPN.GN ---
Behaviors/Verbalizations/Mental Status: [] Pt alert and oriented, casually dressed and groomed. Eye contact fair. Motor activity appropriate. Speech within normal limits. Affect full , mood euthymic, Thoughts linear, logical, no signs of hallucinations or delusions. Client Response/Progress/Benefit: [] Client responded well to session, engaged and taking notes throughout. Worked with group to connect components of the experiential activity with characteristics of healthy and unhealthy relationships. Attentive during psychoeducation about characteristics of healthy, unhealthy, and abusive relationships. Group member picked unhealthy and healthy attributes of an important relationship in their lives. Client reported they would like to continue to improve control in their chosen relationship. Appeared to benefit from identifying current healthy relationship attributes and an area client wants to work on to build healthier relationships. Client to continue IOP to increase healthy coping skills, increase self care, and prevent decompensation. Narrative Note: []
--- NOTE | 2025-03-04 15:58 | BH.MDN ---
Multi-Disciplinary Note Note 30-min Individual: Time Started:: 09:33 Date: 03/04/25 Purpose of session/treatment goals addressed:: Purpose of session was to address tx plan goal #1 obj #1 & #2. Created coping plan for as well. Eye Contact:: Good Motor Activity:: Appropriate Appearance:: Casual Speech:: Appropriate Mood:: Euthymic Affect:: Congruent Thoughts:: Linear, Logical and No evidence of hallucinations/delusions noted Staff Interventions:: CBT techniques, strengths perspective, goal setting and other ( coping plan) Client Response:: Pt actively engaged in session. Shared he had a follow-up appointment with his efficiency manager yesterday and was informed he will not have to do chemo based on thyroid results. Expressed relief in this regard and hope he will be able to reduce frequency of appointments as he struggles with significant guilt when his step-father drives him to these appointments in [place]. Pt reports doing well to try and challenge moments when experiencing guilt for this and instead tried to remind himself his step-dad enjoys trying new restaurants on these drives. Additionally, pt reports using the time in [place] to connect with a friend in the area and described spending time getting lunch together and catching up on things. Notes that outside of the guilt for needing transportation assistance, overall his mood continues to improve and he is feeling less depressed. Pt shared that he will not be attending group next week due to the ; however, has taken steps to ensure he continues to have social support. Discussed plans to attend an online book club tomorrow, will begin the virtual autism support group on 03/04 (Monday), and will have a psychiatry appointment Monday. Pt shared wanting to continue to engage in cooking and is make mashed potatoes for his family meal as well. Reviewed skills pt can practice if he begins to struggle during the holiday and pt identified going for walks, neutral self-talk statements, and reading. Risks/Concerns:: Pt denies any active suicidal ideation, plan, or intent. Pt does endorse passive thoughts of but this is within established baseline. Progress Toward Goals/Plan:: Progress noted. Pt continues to report increased consistency in independent skill building, completion of ADLs, and use of behavioral activation skills. Pt reports improved mood and has been reaching out more to social supports. Ongoing use of inappropriate guilt but is working to more actively challenge this as well. Pt notes a desire to address over apologizing moving forward. Recommended continued IOP tx to maintain gains, increase consistent skill application, and prevent decompensation. Time Stopped:: 09:58
== END 2025-03-09 23:59 ==
LOC: BHIOP 08:35
PROVIDERS: Referring Provider Student in an Organized Health Care Education/Training Program; Visit Provider Student in an Organized Health Care Education/Training Program
DX: F33.2 Major depressive disorder, recurrent severe without psychotic features (principal); F84.0 Autistic disorder
CPT/HCPCS: H2012; H2020; S9480; 90832

== ENCOUNTER 2025-03-10 08:04 | Outpatient (RCR) | payer MEDICAID, SELFPAY ==
--- NOTE | 2025-03-11 11:00 | BH.SGPN.GN ---
Behaviors/Verbalizations/Mental Status: []Pt alert and oriented, disheveled appearance. Eye contact good. Motor activity appropriate. Speech within normal limits. Affect constricted, mood calm. Thoughts linear, logical, no signs of hallucinations or delusions. Client Response/Progress/Benefit: [] Pt responded well to session, contributing to discussion and attentive throughout. Pt identified a negative thought that has kept them stuck. Pt's thought was I should have .? Pt reported when they think this way, pt ?push people away because I?m talking about .? ?Pt worked to reframe the thought by finding more rational, realistic ways to look at the thoughts and then processed them within group setting. Pt reframed the thought to ?I?m alive so I might as well do something good.? Pt appeared to benefit from practicing challenging negative thinking with peers and gaining coping skills. Pt will continue IOP tx to increase self-care practices, improve daily functioning, and combat distortions. ? Narrative Note: []
--- NOTE | 2025-03-13 09:05 | BH.SGPN.GN ---
Behaviors/Verbalizations/Mental Status: [] Eye contact is good. Motor activity is appropriate. Appearance is casual. Speech is Appropriate. Mood is dysthymic. Affect is congruent. Thoughts are linear and logical. No evidence of psychosis. Reviewed daily check in sheet and no reports of suicidal ideations. Client Response/Progress/Benefit: [] Pt participated when prompted. Attentive. Pt talked at length about his interests and possible future job possibilities. Was future-oriented and hopeful. Able to identify mental health wins. Progress noted. Benefited from group support, encouragement, and feedback. Will continue in IOP to maintain safety, prevent decompensation, and improve functioning. Narrative Note: []
--- NOTE | 2025-03-13 11:15 | BH.SGPN.GN ---
Behaviors/Verbalizations/Mental Status: [] Pt alert and oriented, neatly dressed and groomed. Eye contact good. Motor activity appropriate. Speech within normal limits. Affect congruent, mood euthymic. Thoughts linear, logical, no signs of hallucinations or delusions. Client Response/Progress/Benefit: [] Pt responded well to session, taking notes and participating in worksheet discussion. Pt connected with the discussion on action steps, and this helped pt learn how to set goals differently. Pt set motion and action steps to goal which included ?walking 2 miles a day and get learners permit to increase independence.? Appeared to benefit from identifying a small goal to benefit mental health. Pt is to continue IOP tx to increase distress tolerance, reduce negative self-talk, and improve daily functioning. Narrative Note: []
--- NOTE | 2025-03-14 10:15 | BH.SGPN.GN ---
Behaviors/Verbalizations/Mental Status: [] Eye contact is good. Motor activity is appropriate. Appearance is casual. Speech is Appropriate. Mood is euthymic. Affect is congruent. Thoughts are linear and logical. No evidence of psychosis. Client Response/Progress/Benefit: [] Client was an active participant during interactive group discussions. Attentive during psychoeducation on the six types of boundaries (physical, emotional, intellectual, sexual, time, and material). Along with peers contributed to interactive discussion on defining what a boundary is in mental health. Client along with peers identified challenges to setting boundaries which included; fear of other's response, guilt, fear of rejection, fear of disappointing the other person, feeling like one is unworthy to set boundaries, etc. Client along with peers identified the benefits to setting boundaries such as increased confidence, decreased stress, increased time for self-care, and better quality of life. Group discussed the mental health benefits to establishing boundaries at work, school, and home. Client benefited from increased awareness and insight on the importance/benefit to setting health boundaries. Client discharging from program today. Narrative Note: []
--- NOTE | 2025-03-14 10:49 | BH.DS ---
Discharge Summary Demographics Date of Admission:: 01/21/25 Discharge Date: 03/14/25 Presenting Problems at Admission:: Pt was referred to [facility] tx by outpatient therapist, Alis Judd at [facility], due to worsening sx of depression. Pt reports he has a long hx of depression but sx have been worsening since May when he was diagnosed with thyroid cancer. Tumor was removed but pt has continued struggling with daily functioning, feeling like a burden, and guilt for having his parents care for his medical needs. He was living independently in his mother's second home in [place], [place] until November when pt attempted to overdose. He was then hospitalized at [facility] and moved in with his mother and step-father in [place] following hospital d/c. Reports although he is no longer actively suicidal, he continues to struggle with passive thoughts, as well as daily depressive sx. Discharge Diagnoses:: Major Depressive Disorder, Autism Spectrum Disorder Reason for Discharge:: Completed IOP successfully. No longer meets criteria for [facility] level of care. Treatment Progress During Treatment & Response: Client was consistent with attendance and actively engaged. Outcome measures indicate clinical improvement in some areas; however, does also note an influx in anxiety sx. This may be associated with the reduction in depressive sx and pt beginning to engage in more social activities. Since IOP admission, pt has also seen a 50% reduction in suicidal ideation and reports that he ?no longer wants to ?. This is significant given pt?s hx of chronic daily suicidal ideation. The client is medication-compliant. He self-reports improvements in energy, motivation, and improved consistency in completion of independent living skills, and continues to engage with his self-care needs more consistently. Notably, the client reports increased future orientation. She reports improved utilization of coping skills and CBT-based interventions, including cognitive restructuring (thought reframing) and behavioral activation strategies. Issues Still to be Addressed:: Independent living skills, stress management, distress tolerance, socialization and communication skills, boundary setting, and continued work on managing mood. Discharge Recommendations/Instructions:: At present, the patient is planning to continue with outpatient counseling through [facility], as well as psychiatry services through [facility]. She is agreeable to attending aftercare group sessions at [facility] following discharge. Discharge Handout
--- NOTE | 2025-03-14 11:15 | BH.SGPN.GN ---
Behaviors/Verbalizations/Mental Status: [] Eye contact is good. Motor activity is appropriate. Appearance is casual. Speech is Appropriate. Mood is euthymic. Affect is congruent. Thoughts are linear and logical. No evidence of psychosis. Client Response/Progress/Benefit: [] Client responded well to session AEB listening attentively to peers, providing input, as well as taking notes throughout. Participated in group discussion brainstorming various strategies for improving healthy boundary setting. Client reports wanting to begin using skill of giving self permission to focus on self to improve overall ability to establish and maintain healthy boundaries. Seemed to benefit from increased awareness of how different boundary styles can impact mental health. Client discharging successfully from program today. Narrative Note: []
== END 2025-03-14 12:27 | disposition home or self-care (01) ==
LOC: BHIOP 08:04
PROVIDERS: Referring Provider Student in an Organized Health Care Education/Training Program; Visit Provider Student in an Organized Health Care Education/Training Program
DX: F33.2 Major depressive disorder, recurrent severe without psychotic features (principal); F84.0 Autistic disorder
CPT/HCPCS: H2012; H2020; S9480; 90832

== ENCOUNTER 2025-03-20 14:23 | Outpatient (RCR) | payer MEDICAID, SELFPAY ==
--- NOTE | 2025-03-20 14:00 | BH.SGPN.GN ---
Behaviors/Verbalizations/Mental Status: []Pt alert and oriented, disheveled appearance. Eye contact good. Motor activity appropriate. Speech within normal limits. Affect constricted, mood calm. Thoughts linear, logical, no signs of hallucinations or delusions. Client Response/Progress/Benefit: [] Pt responded well to session, completed their self-reflection worksheet. Pt noted they have met with their therapist since last session, they have been taking medication consistently, and used coping skills like deep breathing, radical acceptance, temperature change, and identifying distortions. Pt engaged well during the discussion of the components of self-compassion. Pt connected with the benefits of self-compassion and participated in the activity of reframing a recent setback using self-compassion. Pt used self-compassion to combat negative self-talk and shared plan to work on this throughout the week.?Pt appeared to benefit from practicing self-compassion and connecting with peers. Will continue aftercare to promote mood stability and reinforce healthy coping skills.? Narrative Note: []
--- NOTE | 2025-03-20 14:30 | BH.COMM ---
Communication Note Communication with Client Communication Note: Patient completed IOP and presents today to start relapse prevention group which meets once weekly (1.5 hours) for 8 weeks. Case discussed with Dr. Sterling with plan to admit with dx of F33.2
== END 2025-04-09 23:59 ==
LOC: BHOG 14:23
PROVIDERS: Referring Provider Student in an Organized Health Care Education/Training Program; Visit Provider Student in an Organized Health Care Education/Training Program
DX: F33.2 Major depressive disorder, recurrent severe without psychotic features (principal)
CPT/HCPCS: 90853